=== PATIENT | female | born 1950 | race Caucasian/White ===

== ENCOUNTER → 2016-12-05 | Outpatient (CLI) | payer MEDICARE, OTHER ==
[2016-12-05 15:34] LABS: Basophils # (A) 0.1 k/uL (0-0.2); Basophils % (A) 1 %; CH 31.2; CHCM 31.7; Eosinophils # (A) 0.1 k/uL (0-0.7); Eosinophils % (A) 2 %; HCT 38.6 % (34.0-46.0); HDW 2.19; HGB 12.4 gm/dL (11.4-16.0); Luc # (Auto) 0.15; Luc % (Auto) 2; Lymphocytes # (A) 1.5 k/uL (1.0-4.8); Lymphocytes % (A) 18 %; MCH 31.9 pg (25.0-35.0); MCHC 32.2 g/dL (31.0-37.0); MCV 99.2 fL (80.0-100.0); Mean Platelet Volume 7.5; Monocytes # (A) 0.5 k/uL (0-1.0); Monocytes % (A) 6 %; Neutrophils # (A) 6.1 k/uL (1.3-7.7); Neutrophils % (A) 72 %; RBC 3.89 m/uL (3.80-5.40); RDW 13.8 % (11.5-15.5); WBC 8.4 k/uL (3.8-10.6); WBC (Perox) 8.26
[2016-12-05 15:45] LABS: ALT 24 U/L (9-52); AST 12 U/L (14-36); Alkaline Phosphatase 53 U/L (38-126); Anion Gap 8 mmol/L; Blood Urea Nitrogen 16 mg/dL (7-17); Calcium 9.4 mg/dL (8.4-10.2); Carbon Dioxide 34 mmol/L (22-30); Chloride 93 mmol/L (98-107); Glucose 104 mg/dL (74-99); Non-African American GFR(MDRD) >60 (>60 ml/min/1.73 sqM); Potassium 3.8 mmol/L (3.5-5.1); Sodium 135 mmol/L (137-145); Total Bilirubin 0.3 mg/dL (0.2-1.3); Total Protein 6.4 g/dL (6.3-8.2)
[2016-12-05 16:33] LABS: Vitamin B12 846 pg/mL (239-931)
[2016-12-08 05:43] LABS: Vitamin E (Alpha Tocopherol) 1062 ug/dL (500-1800)
== END ==
LOC: LABWHC1 15:15
PROVIDERS: ATTEND Psychiatry & Neurology Pain Medicine
DX: G32.81 Cerebellar ataxia in diseases classified elsewhere (principal)
CPT/HCPCS: 36415; 80053; 82607; 83519; 84439; 84443; 84446; 84481; 85025

== ENCOUNTER → 2016-12-07 | Outpatient (CLI) | payer MEDICARE, OTHER ==
--- NOTE | 2016-12-07 16:25 | MR ---
EXAMINATION TYPE: MR brain/lspine wo con DATE OF EXAM: 12/07/2016 3:58 PM COMPARISON: MRI brain 01/05/2013 HISTORY: 66-year-old female cerebellar ataxia and low back pain. TECHNIQUE: Multiplanar, multisequence images of the brain and brainstem were acquired without IV con trast. Diffusion weighted imaging is performed. Subsequent multiplanar, multisequence imaging of the lumbar spine. FINDINGS: BRAIN: No evidence for acute infarction, hemorrhage, mass, mass effect, midline shift, herniation, effacemen t of basal cisterns, or extra-axial fluid collection. Mild generalized supratentorial volume loss. No hydrocephalus. Major intracranial flow voids are intact. T2/FLAIR weighted sequences show stable 17 mm low signal focus in the left bo radiata. No signifi cant white matter signal changes. Midline structures demonstrate normal morphology. The craniocervical junction is normal. Mild mucosal thickening ethmoid air cells. Partial opacification of the right greater than left masto id air cells. LUMBAR SPINE: There is a degenerated dextroconvex scoliosis. There is some edematous Modic type I endplate change t owards the left at L4-L5 related to moderate to advanced disc/end plate degenerative change. The intervertebral discs are degenerated, desiccated, and diffusely bulging with moderate disc height loss at L4-L5 and mild at additional levels. Alignment is maintained. Vertebral body heights are preserved. Diffuse heterogeneity of marrow signal without suspicious bone marrow replacement. Conus medullaris is normal. At T11/T12, there is focal posterior disc protrusion which impresses onto the ventral thecal sac but does not cause significant spinal canal or neuroforaminal stenosis. At T12-L1, no spinal canal or foraminal stenosis. At L1-L2, no spinal canal or foraminal stenosis. L2-L3, mild diffuse disc bulge and facet degenerative change. There is mild ventral impression on the thecal sac without significant spinal canal or neuroforaminal stenosis. At L3-L4, diffuse disc bulge with ligamentum flavum thickening and mild facet arthropathy. There is i mpression onto the thecal sac without significant spinal canal stenosis. Mild left neural foraminal s tenosis is noted with a small left intraforaminal annular fissure. At L4-L5, diffuse disc bulge with ligamentum flavum thickening and hypertrophic facet arthropathy. Th ere is circumferential attenuation of the thecal sac without significant spinal canal stenosis. There is mild left neural foraminal stenosis. Disc material may abut the traversing left L5 nerve root. At L5-S1, diffuse disc bulge with facet arthropathy. No significant spinal canal stenosis. Changes re sult in mild right neuroforaminal stenosis. A right lateral component to the disc bulge may abut the extraforaminal right L5 nerve root. No prevertebral or paravertebral soft tissue abnormality seen. Upper abdominal aorta is ectatic at 2.6 cm. COMBINED IMPRESSION: BRAIN: 1. Stable mild generalized atrophy without acute intracranial abnormality seen. 2. Also stable 7 to 8 mm low signal focus in the left bo radiata suggesting hemosiderin depositio n, possible underlying cavernoma. 3. Some retained secretions within the right greater than left mastoid air cells. Correlate for any m astoid pain to exclude mastoiditis. LUMBAR SPINE: 1. Moderate multilevel degenerative disc disease. Changes are moderate to severe towards the left at L4-L5 with edematous Modic type I endplate change relating to a dextroconvex scoliosis. 2. Additional ligamentum flavum thickening and facet arthropathy particularly in the mid to lower lum bar spine. 3. There is narrowing of the thecal sac at multiple levels particularly L3-L4 and L4-L5 but without s ignificant spinal canal stenosis. 4. At L3-L4, there is mild left neuroforaminal stenosis with a small intraforaminal annular fissure. 5. At L4-L5, there is mild left neuroforaminal stenosis. Disc material may abut the traversing left L 5 nerve root here. 6. At L5-S1, there is mild right neuroforaminal stenosis. A right lateral component to the disc bulge at this level may abut the extraforaminal right L5 nerve root.
== END | disposition home or self-care (01) ==
LOC: RADMRIMAIN 14:56
PROVIDERS: ATTEND Psychiatry & Neurology Pain Medicine
DX: M99.73 Connective tissue and disc stenosis of intervertebral foramina of lumbar region (principal); M51.26 Other intervertebral disc displacement, lumbar region; M46.96 Unspecified inflammatory spondylopathy, lumbar region; M41.9 Scoliosis, unspecified; G31.9 Degenerative disease of nervous system, unspecified
CPT/HCPCS: 70551; 72148

== ENCOUNTER → 2017-03-08 | Outpatient (CLI) | payer MEDICARE, OTHER ==
--- NOTE | 2017-03-09 09:05 | MM ---
Reason for exam: screening (asymptomatic). Last mammogram was performed 14 years and 2 months ago. History: Patient is postmenopausal. Family history of breast cancer in mother and breast cancer in 2 sisters. 2 benign excisional biopsies of the left breast. Physical Findings: A clinical breast exam by your physician is recommended on an annual basis and results should be correlated with mammographic findings. MG Screening Mammo w CAD Bilateral CC, MLO, and XCCL view(s) were taken. No prior studies available for comparison. The breast tissue is extremely dense which could obscure a lesion on mammography. There is no discrete abnormality. ASSESSMENT: Negative, BI-RAD 1 RECOMMENDATION: Routine screening mammogram of both breasts in 1 year.
== END | disposition home or self-care (01) ==
LOC: RADMAMWWP 15:02
PROVIDERS: ATTEND Family Medicine
DX: Z12.31 Encounter for screening mammogram for malignant neoplasm of breast (principal)

== ENCOUNTER 2019-01-24 15:56 | Inpatient (IN) | payer MEDICARE, OTHER ==
[2019-01-24] MEDS ORDERED: HYDROcodone/APAP 5-325MG 1 EACH TAB PO STA (16:46)
[2019-01-24] MEDS ORDERED: methylPREDNISolone SOD SUCCI 125 MG/2 ML VIAL IV STA (16:49)
[2019-01-24] MEDS ORDERED: IPRATROPIUM-ALBUTEROL 3 ML NEB INHALATION STA (16:49)
--- NOTE | 2019-01-24 16:53 | ED ---
General Adult HPI - General Chief complaint: Weakness Stated complaint: Weakness Time Seen by Provider: 01/24/19 16:16 Source: patient, RN notes reviewed, old records reviewed (ER report and head CT from [facility] 01/20/[address] shows no acute process. Compared with 01/08/2019.) Mode of arrival: wheelchair Limitations: no limitations - History of Present Illness Initial comments: Patient is a pleasant 68-year-old female presenting to the emergency Department with weakness. Symptoms have progressed with the past week. Patient is a poor historian secondary to history of memory problems. Ex- is present and provides majority of history. Patient was in a different facility a couple of weeks ago for syncopal episodes. Patient has progressively become more weak over that time. Patient did see her primary care physician today and had a near-syncopal episode. Patient was advised come to emergency department and advised that she would probably need placement. Patient is wheelchair-bound however is able to transfer. Patient does have cough and difficulty in breathing. Patient states this is somewhat worse than normal however ex- states this is chronic. No leg pain or leg swelling. No chest pain. Patient does not feel confused. - Related Data Home Medications Medication Instructions Recorded Confirmed Divalproex ER [Depakote ER] 500 mg PO DAILY 11/09/15 01/24/19 FLUoxetine HCL [PROzac] 40 mg PO DAILY 11/09/15 01/24/19 Atorvastatin [Lipitor] 10 mg PO DAILY 09/16/17 01/24/19 fentaNYL 75MCG/HR PATCH [Duragesic 1 patch TRANSDERM Q72H 09/16/17 01/24/19 75MCG/HR] Aspirin [Adult Low Dose Aspirin EC] 81 mg PO DAILY PRN 01/24/19 01/24/19 Gabapentin [Neurontin] 600 mg PO TID 01/24/19 01/24/19 Levothyroxine Sodium [Synthroid] 25 mcg PO DAILY 01/24/19 01/24/19 OLANZapine [ZyPREXA] 10 mg PO BID 01/24/19 01/24/19 Oxybutynin Chloride [Ditropan XL] 10 mg PO HS 01/24/19 01/24/19 Primidone [Mysoline] 50 mg PO QID 01/24/19 01/24/19 Propranolol HCl 10 mg PO QID 01/24/19 01/24/19 oxyCODONE HCL [oxyCODONE HCL (IR)] 30 mg PO QID 01/24/19 01/24/19 Allergies Allergy/AdvReac Type Severity Reaction Status Date / Time Iodinated Contrast- Oral and Allergy Unknown Verified 01/24/19 17:52 IV Dye [Iodinated Contrast Media - IV Dye] codeine AdvReac Nausea & Verified 01/24/19 17:52 Vomiting morphine AdvReac Nausea & Verified 01/24/19 17:52 Vomiting Review of Systems ROS Statement: Those systems with pertinent positive or pertinent negative responses have been documented in the HPI. ROS Other: All systems not noted in ROS Statement are negative. Constitutional: Denies: fever Eyes: Denies: eye pain ENT: Denies: ear pain Respiratory: Reports: cough, dyspnea Cardiovascular: Denies: chest pain Endocrine: Reports: fatigue Gastrointestinal: Denies: abdominal pain Genitourinary: Denies: urgency, dysuria Musculoskeletal: Denies: back pain Skin: Denies: rash Past Medical History Past Medical History: Cancer, COPD, CVA/TIA, Deep Vein Thrombosis (DVT), Hyperlipidemia, Osteoarthritis (OA), Rheumatoid Arthritis (RA), Thyroid Disorder Additional Past Medical History / Comment(s): hepatitis c, shingles,RSD, thyroid cancer and a couple lymph nodes(1995), fibrocystic breast disease, ovarian cyst, 4 TIA, cardiac arrest in 1971 during a hip sx, congenital hip disease/dislocation;TB(1997); 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 Past Anesthesia/Blood Transfusion Reactions: No Reported Reaction Additional Past Anesthesia/Blood Transfusion Reaction / Comment(s): blood transfusion 1977 -contracted hep c- per daughter it layed domant till 1999. Past Psychological History: Anxiety, Depression Smoking Status: Current every day smoker Past Alcohol Use History: None Reported Past Drug Use History: Marijuana - Past Family History Mother Family Medical History: No Reported History Father Additional Family Medical History / Comment(s): TB Sister(s) Family Medical History: Cancer Additional Family Medical History / Comment(s): LUNG CANCER General Exam Limitations: no limitations General appearance: alert, in no apparent distress Head exam: Present: atraumatic Eye exam: Present: normal appearance, PERRL ENT exam: Present: normal oropharynx Neck exam: Present: normal inspection Respiratory exam: Present: wheezes, rales. Absent: respiratory distress Cardiovascular Exam: Present: regular rate, normal rhythm GI/Abdominal exam: Present: soft. Absent: tenderness Extremities exam: Present: normal inspection Neurological exam: Present: alert Expanded Patient oriented to: Present: person, place. Absent: time Motor strength exam: RUE: 5, LUE: 5, RLE: 5, LLE: 5 Eye Response: (4) open spontaneously Motor Response: (6) obeys commands Verbal Response: (4) confused conversation Psychiatric exam: Present: normal affect, normal mood Skin exam: Present: normal color. Absent: rash Course Vital Signs 01/24/19 01/24/19 01/24/19 16:02 17:22 17:35 Temperature 99.0 F Pulse Rate 75 70 Respiratory 18 18 Rate Blood Pressure 158/97 O2 Sat by Pulse 94 L Oximetry 01/24/19 01/24/19 17:46 18:49 Temperature Pulse Rate 72 70 Respiratory 20 Rate Blood Pressure 160/100 O2 Sat by Pulse Oximetry EKG Findings - EKG Comments: EKG Findings:: Normal sinus rhythm 73. ND 122. QRS 88. QT 372. QTC 49. Normal axis. Normal QRS. No acute ST change. Procedures - ABG Interpretation Ph: 7.43 PCO2: 57.1 PO2: 76.6 Interpretation: respiratory acidosis, metabolic alkalosis, other (Compensated) Medical Decision Making - Medical Decision Making Case was discussed with Dr. Thurston, covering for Dr. Colon, who will admit. Patient and family are updated. Patient will be placed on BiPAP for one to 2 hour period improved CO2 - Lab Data Result diagrams: 01/24/19 16:29 01/24/19 16:29 Lab Results 01/24/19 01/24/19 01/24/19 Range/Units 16:29 16:29 16:29 WBC 9.6 (3.8-10.6) k/uL RBC 4.02 (3.80-5.40) m/uL Hgb 13.0 (11.4-16.0) gm/dL Hct 39.3 (34.0-46.0) % MCV 97.6 (80.0-100.0) fL MCH 32.3 (25.0-35.0) pg MCHC 33.1 (31.0-37.0) g/dL RDW 14.5 (11.5-15.5) % Plt Count 320 (150-450) k/uL Neutrophils % 79 % Lymphocytes % 10 % Monocytes % 6 % Eosinophils % 1 % Basophils % 1 % Neutrophils # 7.6 (1.3-7.7) k/uL Lymphocytes # 1.0 (1.0-4.8) k/uL Monocytes # 0.6 (0-1.0) k/uL Eosinophils # 0.1 (0-0.7) k/uL Basophils # 0.1 (0-0.2) k/uL PT 9.3 (9.0-12.0) sec INR 0.8 (<1.2) APTT 25.2 (22.0-30.0) sec Sample Site ABG pH (7.35-7.45) ABG pCO2 (35-45) mmHg ABG pO2 (83-108) mmHg ABG HCO3 (21-25) mmol/L ABG Total CO2 (19-24) mmol/L ABG O2 Saturation (94-97) % ABG Base Excess mmol/L Efren Test FiO2 % Sodium 128 L (137-145) mmol/L Potassium 4.1 (3.5-5.1) mmol/L Chloride 86 L (98-107) mmol/L Carbon Dioxide 36 H (22-30) mmol/L Anion Gap 6 mmol/L BUN 16 (7-17) mg/dL Creatinine 0.74 (0.52-1.04) mg/dL Est GFR (CKD-EPI)AfAm >90 (>60 ml/min/1.73 sqM) Est GFR (CKD-EPI)NonAf 85 (>60 ml/min/1.73 sqM) Glucose 99 (74-99) mg/dL Calcium 9.1 (8.4-10.2) mg/dL Phosphorus 3.6 (2.5-4.5) mg/dL Magnesium 1.7 (1.6-2.3) mg/dL Total Bilirubin 0.3 (0.2-1.3) mg/dL AST 52 H (14-36) U/L ALT 63 H (9-52) U/L Alkaline Phosphatase 86 (38-126) U/L Creatine Kinase 44 (30-135) U/L Troponin I (0.000-0.034) ng/mL Total Protein 6.2 L (6.3-8.2) g/dL Albumin 3.5 (3.5-5.0) g/dL TSH 40.200 H (0.465-4.680) mIU/L Free T4 1.03 (0.78-2.19) ng/dL Free T3 pg/mL 1.8 L (2.8-5.3) pg/ml Urine Color Urine Appearance (Clear) Urine pH (5.0-8.0) Ur Specific Vanderbilt (1.001-1.035) Urine Protein (Negative) Urine Glucose (UA) (Negative) Urine Ketones (Negative) Urine Blood (Negative) Urine Nitrite (Negative) Urine Bilirubin (Negative) Urine Urobilinogen (<2.0) mg/dL Ur Leukocyte Esterase (Negative) Valproic Acid ug/mL 01/24/19 01/24/19 01/24/19 Range/Units 16:29 16:29 17:00 WBC (3.8-10.6) k/uL RBC (3.80-5.40) m/uL Hgb (11.4-16.0) gm/dL Hct (34.0-46.0) % MCV (80.0-100.0) fL MCH (25.0-35.0) pg MCHC (31.0-37.0) g/dL RDW (11.5-15.5) % Plt Count (150-450) k/uL Neutrophils % % Lymphocytes % % Monocytes % % Eosinophils % % Basophils % % Neutrophils # (1.3-7.7) k/uL Lymphocytes # (1.0-4.8) k/uL Monocytes # (0-1.0) k/uL Eosinophils # (0-0.7) k/uL Basophils # (0-0.2) k/uL PT (9.0-12.0) sec INR (<1.2) APTT (22.0-30.0) sec Sample Site ABG pH (7.35-7.45) ABG pCO2 (35-45) mmHg ABG pO2 (83-108) mmHg ABG HCO3 (21-25) mmol/L ABG Total CO2 (19-24) mmol/L ABG O2 Saturation (94-97) % ABG Base Excess mmol/L Efren Test FiO2 % Sodium (137-145) mmol/L Potassium (3.5-5.1) mmol/L Chloride (98-107) mmol/L Carbon Dioxide (22-30) mmol/L Anion Gap mmol/L BUN (7-17) mg/dL Creatinine (0.52-1.04) mg/dL Est GFR (CKD-EPI)AfAm (>60 ml/min/1.73 sqM) Est GFR (CKD-EPI)NonAf (>60 ml/min/1.73 sqM) Glucose (74-99) mg/dL Calcium (8.4-10.2) mg/dL Phosphorus (2.5-4.5) mg/dL Magnesium (1.6-2.3) mg/dL Total Bilirubin (0.2-1.3) mg/dL AST (14-36) U/L ALT (9-52) U/L Alkaline Phosphatase (38-126) U/L Creatine Kinase (30-135) U/L Troponin I <0.012 (0.000-0.034) ng/mL Total Protein (6.3-8.2) g/dL Albumin (3.5-5.0) g/dL TSH (0.465-4.680) mIU/L Free T4 (0.78-2.19) ng/dL Free T3 pg/mL (2.8-5.3) pg/ml Urine Color Light Yellow Urine Appearance Clear (Clear) Urine pH 7.0 (5.0-8.0) Ur Specific Vanderbilt 1.010 (1.001-1.035) Urine Protein Negative (Negative) Urine Glucose (UA) Negative (Negative) Urine Ketones Negative (Negative) Urine Blood Negative (Negative) Urine Nitrite Negative (Negative) Urine Bilirubin Negative (Negative) Urine Urobilinogen <2.0 (<2.0) mg/dL Ur Leukocyte Esterase Negative (Negative) Valproic Acid 25.0 ug/mL 01/24/19 Range/Units 17:21 WBC (3.8-10.6) k/uL RBC (3.80-5.40) m/uL Hgb (11.4-16.0) gm/dL Hct (34.0-46.0) % MCV (80.0-100.0) fL MCH (25.0-35.0) pg MCHC (31.0-37.0) g/dL RDW (11.5-15.5) % Plt Count (150-450) k/uL Neutrophils % % Lymphocytes % % Monocytes % % Eosinophils % % Basophils % % Neutrophils # (1.3-7.7) k/uL Lymphocytes # (1.0-4.8) k/uL Monocytes # (0-1.0) k/uL Eosinophils # (0-0.7) k/uL Basophils # (0-0.2) k/uL PT (9.0-12.0) sec INR (<1.2) APTT (22.0-30.0) sec Sample Site rbrach ABG pH 7.43 (7.35-7.45) ABG pCO2 57 H (35-45) mmHg ABG pO2 77 L (83-108) mmHg ABG HCO3 38 H (21-25) mmol/L ABG Total CO2 40 H (19-24) mmol/L ABG O2 Saturation 95.9 (94-97) % ABG Base Excess 13.9 mmol/L Efren Test Yes FiO2 28 % Sodium (137-145) mmol/L Potassium (3.5-5.1) mmol/L Chloride (98-107) mmol/L Carbon Dioxide (22-30) mmol/L Anion Gap mmol/L BUN (7-17) mg/dL Creatinine (0.52-1.04) mg/dL Est GFR (CKD-EPI)AfAm (>60 ml/min/1.73 sqM) Est GFR (CKD-EPI)NonAf (>60 ml/min/1.73 sqM) Glucose (74-99) mg/dL Calcium (8.4-10.2) mg/dL Phosphorus (2.5-4.5) mg/dL Magnesium (1.6-2.3) mg/dL Total Bilirubin (0.2-1.3) mg/dL AST (14-36) U/L ALT (9-52) U/L Alkaline Phosphatase (38-126) U/L Creatine Kinase (30-135) U/L Troponin I (0.000-0.034) ng/mL Total Protein (6.3-8.2) g/dL Albumin (3.5-5.0) g/dL TSH (0.465-4.680) mIU/L Free T4 (0.78-2.19) ng/dL Free T3 pg/mL (2.8-5.3) pg/ml Urine Color Urine Appearance (Clear) Urine pH (5.0-8.0) Ur Specific Vanderbilt (1.001-1.035) Urine Protein (Negative) Urine Glucose (UA) (Negative) Urine Ketones (Negative) Urine Blood (Negative) Urine Nitrite (Negative) Urine Bilirubin (Negative) Urine Urobilinogen (<2.0) mg/dL Ur Leukocyte Esterase (Negative) Valproic Acid ug/mL - Radiology Data Radiology results: image reviewed (Chest x-ray shows no acute process) Critical Care Time Critical Care Time: Yes Total Critical Care Time: 34 Disposition Clinical Impression: Acute exacerbation of chronic obstructive pulmonary disease (COPD), Near syncope, Hyponatremia Disposition: ADMITTED IP TO THIS HOSP Is patient prescribed a controlled substance at d/c from ED?: No Decision Time: 17:31
[2019-01-24 17:24] LABS: ABG Base Excess 13.9 mmol/L; ABG HCO3 38 mmol/L (21-25); ABG Oxygen Saturation 95.9 % (94-97); ABG PCO2 57 mmHg (35-45); ABG PH 7.43 (7.35-7.45); ABG PO2 77 mmHg (83-108); ABG TCO2 40 mmol/L (19-24); Allen Test Performed? Yes
[2019-01-24 17:25] LABS: Basophils # (A) 0.1 k/uL (0-0.2); Basophils % (A) 1 %; Eosinophils # (A) 0.1 k/uL (0-0.7); Eosinophils % (A) 1 %; HCT 39.3 % (34.0-46.0); Lymphocytes % (A) 10 %; MCH 32.3 pg (25.0-35.0); MCHC 33.1 g/dL (31.0-37.0); MCV 97.6 fL (80.0-100.0); Mean Platelet Volume 7.1; Monocytes # (A) 0.6 k/uL (0-1.0); Monocytes % (A) 6 %; Neutrophils # (A) 7.6 k/uL (1.3-7.7); Neutrophils % (A) 79 %; Platelet Count 320 k/uL (150-450); RBC 4.02 m/uL (3.80-5.40); RDW 14.5 % (11.5-15.5); WBC 9.6 k/uL (3.8-10.6)
[2019-01-24] MEDS ORDERED: IPRATROPIUM-ALBUTEROL 3 ML NEB INHALATION PRN (17:31)
[2019-01-24 17:36] LABS: ALT 63 U/L (9-52); AST 52 U/L (14-36); African American GFR (CKD) >90 (>60 ml/min/1.73 sqM); Albumin 3.5 g/dL (3.5-5.0); Alkaline Phosphatase 86 U/L (38-126); Anion Gap 6 mmol/L; Blood Urea Nitrogen 16 mg/dL (7-17); Calcium 9.1 mg/dL (8.4-10.2); Carbon Dioxide 36 mmol/L (22-30); Chloride 86 mmol/L (98-107); Creatine Kinase 44 U/L (30-135); Glucose 99 mg/dL (74-99); Magnesium 1.7 mg/dL (1.6-2.3); Phosphorus 3.6 mg/dL (2.5-4.5); Potassium 4.1 mmol/L (3.5-5.1); Sodium 128 mmol/L (137-145); Total Bilirubin 0.3 mg/dL (0.2-1.3); Total Protein 6.2 g/dL (6.3-8.2)
[2019-01-24 17:42] LABS: INR 0.8 (<1.2); Partial Thromboplastin Time 25.2 sec (22.0-30.0); Prothrombin Time 9.3 sec (9.0-12.0)
[2019-01-24 17:43] LABS: Appearance,Urine Clear (Clear); Bilirubin,Urine Negative (Negative); Blood,Urine Negative (Negative); Color,Urine Light Yellow; Glucose,Urine (UA) Negative (Negative); Ketones,Urine Negative (Negative); Leukocyte Esterase,Urine Negative (Negative); Nitrite,Urine Negative (Negative); Protein,Urine Negative (Negative); Urobilinogen,Urine <2.0 mg/dL (<2.0)
[2019-01-24 17:52] LABS: T4, Free (Free Thyroxine) 1.03 ng/dL (0.78-2.19)
--- NOTE | 2019-01-24 18:09 | XR ---
EXAMINATION TYPE: XR chest 2V DATE OF EXAM: 01/24/2019 COMPARISON: September 24, 2017 HISTORY: Weakness TECHNIQUE: Frontal and lateral views of the chest are obtained. FINDINGS: There is no heart failure nor confluent pneumonic infiltrate. Costophrenic angles are luann r. There are chest leads. Bony thorax is intact and there is osteopenia. IMPRESSION: No active cardiopulmonary disease. No change.
[2019-01-24] MEDS: methylPREDNISolone SOD SUCCI 125 MG/2 ML VIAL IV SCH ×2 (18:53→23:27)
[2019-01-24] MEDS: SODIUM CHLORIDE 0.9% 1,000 ML IV SCH (18:53)
[2019-01-24] MEDS ORDERED: amLODIPine 5 MG TAB PO STA (19:44)
[2019-01-24] MEDS ORDERED: ASPIRIN 81 MG PO PRN (20:15)
[2019-01-24] MEDS: IPRATROPIUM-ALBUTEROL 3 ML NEB INHALATION SCH (20:54)
[2019-01-24] MEDS ORDERED: GABAPENTIN 300 MG CAP PO SCH (21:00)
[2019-01-24] MEDS ORDERED: OLANZapine 5 MG TAB PO SCH (21:00)
[2019-01-24] MEDS: IMIPRAMINE 25 MG TAB PO SCH (21:55)
[2019-01-24] MEDS: GABAPENTIN 300 MG CAP PO SCH (21:56)
[2019-01-24] MEDS: PRIMIDONE 50 MG TAB PO SCH (21:56)
[2019-01-24] MEDS: PROPRANOLOL 10 MG TAB PO SCH (22:05)
[2019-01-24] MEDS: OXYBUTYNIN 10 MG TAB.ER.24 PO SCH (22:05)
[2019-01-24] MEDS: OLANZapine 10 MG TAB PO SCH (22:05)
[2019-01-25] MEDS: methylPREDNISolone SOD SUCCI 125 MG/2 ML VIAL IV SCH (05:43)
[2019-01-25] MEDS: LEVOTHYROXINE 25 MCG TAB PO SCH (05:43)
[2019-01-25] MEDS: IPRATROPIUM-ALBUTEROL 3 ML NEB INHALATION SCH ×5 (08:02→23:45)
[2019-01-25] MEDS: SYMBICORT 160-4.5 MCG INHALER INHALATION SCH ×2 (08:02→22:02)
[2019-01-25] MEDS: FLUoxetine HCL 20 MG CAP PO SCH (08:27)
[2019-01-25] MEDS: GABAPENTIN 300 MG CAP PO SCH ×3 (08:27→19:45)
[2019-01-25] MEDS: ATORVASTATIN 10 MG TAB PO SCH (08:27)
[2019-01-25] MEDS: methylPREDNISolone 4 MG TAB TAPER PO SCH (08:28)
[2019-01-25] MEDS: OLANZapine 10 MG TAB PO SCH ×2 (08:30→21:17)
[2019-01-25] MEDS: PRIMIDONE 50 MG TAB PO SCH ×3 (08:30→21:17)
[2019-01-25] MEDS: PROPRANOLOL 10 MG TAB PO SCH ×4 (08:31→21:17)
--- NOTE | 2019-01-25 09:12 | P.CRDCN ---
History of Present Illness Consult date: 01/25/19 History of present illness: This is a 68-year-old female patient who is somewhat poor historian and we consulted to see the patient because of presyncope. The patient does have history of smoking and known chronic obstructive pulmonary disease and hypoxic respiratory failure and she is requiring oxygen 24 and she is on 2 L at home, but beside that there is no history of coronary artery disease, diabetes, hypertension, and dyslipidemia. She lives with her ex- at home. The patient is stated that she has been feeling weak and tired. Beside that she has been experiencing symptoms of cough productive of sputum. Denies any fever or chills. Denies any chest pain or chest discomfort. She stated that she has been more short of breath lately. Beside that she has been progressively weak area she denies any loss of consciousness or syncope. But she stated that she has been feeling dizzy. The patient was brought to the emergency room by her ex-. She stated that the main reason she was brought here is for possible replacement. The patient is not aware of any prior history of coronary artery disease or congestive heart failure or any cardiac arrhythmia and she never seen by a deaf interpreter in the past. The chest x-ray did not show any acut e abnormalities. The EKG showed sinus rhythm without any ischemic ST or T-wave abnormalities. The hemoglobin is within normal limits. The sodium was low. The first set of troponin came in to be unremarkable. 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 Past Anesthesia/Blood Transfusion Reactions: No Reported Reaction Additional Past Anesthesia/Blood Transfusion Reaction / Comment(s): blood transfusion 1977 -contracted hep c- per daughter it layed domant till 1999. Past Psychological History: Anxiety, Depression Smoking Status: Current every day smoker Past Alcohol Use History: None Reported Past Drug Use History: Marijuana - Past Family History Mother Family Medical History: No Reported History Father Additional Family Medical History / Comment(s): TB Sister(s) Family Medical History: Cancer Additional Family Medical History / Comment(s): LUNG CANCER Medications and Allergies Home Medications Medication Instructions Recorded Confirmed Type Divalproex ER [Depakote ER] 500 mg PO DAILY 11/09/15 01/24/19 History FLUoxetine HCL [PROzac] 40 mg PO DAILY 11/09/15 01/24/19 History Atorvastatin [Lipitor] 10 mg PO DAILY 09/16/17 01/24/19 History fentaNYL 75MCG/HR PATCH [Duragesic 1 patch TRANSDERM Q72H 09/16/17 01/24/19 History 75MCG/HR] Aspirin [Adult Low Dose Aspirin EC] 81 mg PO DAILY PRN 01/24/19 01/24/19 History Gabapentin [Neurontin] 600 mg PO TID 01/24/19 01/24/19 History Levothyroxine Sodium [Synthroid] 25 mcg PO DAILY 01/24/19 01/24/19 History OLANZapine [ZyPREXA] 10 mg PO BID 01/24/19 01/24/19 History Oxybutynin Chloride [Ditropan XL] 10 mg PO HS 01/24/19 01/24/19 History Primidone [Mysoline] 50 mg PO QID 01/24/19 01/24/19 History Propranolol HCl 10 mg PO QID 01/24/19 01/24/19 History oxyCODONE HCL [oxyCODONE HCL (IR)] 30 mg PO QID 01/24/19 01/24/19 History Allergies Allergy/AdvReac Type Severity Reaction Status Date / Time Iodinated Contrast- Oral and Allergy Unknown Verified 01/24/19 17:52 IV Dye [Iodinated Contrast Media - IV Dye] codeine AdvReac Nausea & Verified 01/24/19 17:52 Vomiting morphine AdvReac Nausea & Verified 01/24/19 17:52 Vomiting Physical Exam Vitals: Vital Signs Temp Pulse Pulse Resp BP BP Pulse Ox 01/25/19 08:17 84 01/25/19 08:06 80 98 01/25/19 04:32 97.5 F L 66 18 131/75 98 01/24/19 21:05 77 16 01/24/19 20:55 75 16 95 01/24/19 20:15 97.5 F L 66 18 175/84 98 01/24/19 19:39 97.9 F 72 16 154/96 96 01/24/19 18:49 70 20 160/100 01/24/19 17:46 72 01/24/19 17:35 70 01/24/19 17:22 74 16 96 01/24/19 16:18 97.9 F 72 16 153/108 96 01/24/19 16:02 99.0 F 75 18 158/97 94 L Intake and Output 01/24/19 01/25/19 01/25/19 22:59 06:59 14:59 Intake Total 590 1140 Balance 590 1140 Intake: Intake, IV Titration 900 Amount Sodium Chloride 0.9% 1, 900 000 ml @ 75 mls/hr IV . [id number] [facility] Rx#:[id number] Oral 590 240 Other: Voiding Method Bedside Commode # Voids 1 2 # Bowel Movements 1 Weight 44.906 kg - Constitutional General appearance: no acute distress - Respiratory Respiratory: bilateral: wheezing - Cardiovascular Rhythm: regular Heart sounds: normal: S1, S2 Results 01/24/19 16:29 01/24/19 16:29 Cardiac Enzymes 01/24/19 01/24/19 Range/Units 16:29 16:29 AST 52 H (14-36) U/L Troponin I <0.012 (0.000-0.034) ng/mL Coagulation 01/24/19 Range/Units 16:29 PT 9.3 (9.0-12.0) sec APTT 25.2 (22.0-30.0) sec CBC 01/24/19 Range/Units 16:29 WBC 9.6 (3.8-10.6) k/uL RBC 4.02 (3.80-5.40) m/uL Hgb 13.0 (11.4-16.0) gm/dL Hct 39.3 (34.0-46.0) % Plt Count 320 (150-450) k/uL Comprehensive Metabolic Panel 01/24/19 Range/Units 16:29 Sodium 128 L (137-145) mmol/L Potassium 4.1 (3.5-5.1) mmol/L Chloride 86 L (98-107) mmol/L Carbon Dioxide 36 H (22-30) mmol/L BUN 16 (7-17) mg/dL Creatinine 0.74 (0.52-1.04) mg/dL Glucose 99 (74-99) mg/dL Calcium 9.1 (8.4-10.2) mg/dL AST 52 H (14-36) U/L ALT 63 H (9-52) U/L Alkaline Phosphatase 86 (38-126) U/L Total Protein 6.2 L (6.3-8.2) g/dL Albumin 3.5 (3.5-5.0) g/dL Current Medications Generic Name Dose Route Start Last Admin Trade Name Freq PRN Reason Stop Dose Admin Albuterol/Ipratropium 3 ml 01/24/19 21:00 01/25/19 08:02 Duoneb 0.5 Mg-3 Mg/3 Ml Soln INHALATION 3 ml RT-QID JOSUE Administration Albuterol/Ipratropium 3 ml 01/24/19 17:31 Duoneb 0.5 Mg-3 Mg/3 Ml Soln INHALATION RT-Q4H PRN Shortness Of Breath Or Wheezing Aspirin 81 mg 01/24/19 20:15 Aspirin PO DAILY PRN Pain Atorvastatin Calcium 10 mg 01/25/19 09:00 01/25/19 08:27 Lipitor PO 10 mg DAILY JOSUE Administration Budesonide/Formoterol Fumarate 2 puff 01/25/19 08:00 01/25/19 08:02 Symbicort 160-4.5 Mcg Inhaler INHALATION 2 puff RT-BID JOSUE Administration Divalproex Sodium 500 mg 01/25/19 09:00 Depakote Er PO DAILY JOSUE Fluoxetine HCl 40 mg 01/25/19 09:00 01/25/19 08:27 Prozac PO 40 mg DAILY JOSUE Administration Gabapentin 600 mg 01/24/19 22:00 01/25/19 08:27 Neurontin PO 600 mg TID JOSUE Administration Sodium Chloride 1,000 mls @ 75 mls/hr 01/24/19 17:45 01/24/19 18:53 Saline 0.9% IV 75 mls/hr .[id number] JOSUE Administration Imipramine HCl 25 mg 01/24/19 21:00 01/24/19 21:55 Tofranil PO 25 mg HS JOSUE Administration Levothyroxine Sodium 25 mcg 01/25/19 06:30 01/25/19 05:43 Synthroid PO 25 mcg DAILY@0630 JOSUE Administration Methylprednisolone 24 mg 01/25/19 09:00 01/25/19 08:28 Medrol Dose Pack PO 01/31/19 08:59 20 mg DAILY JOSUE Administration Taper Nitroglycerin 2.5 mg 01/25/19 09:00 Nitro-Bid PO DAILY JOSUE Olanzapine 10 mg 01/24/19 21:00 01/25/19 08:30 Zyprexa PO 10 mg BID JOSUE Administration Oxybutynin Chloride 10 mg 01/24/19 21:00 01/24/19 22:05 Ditropan Xl PO 10 mg HS JOSUE Administration Oxycodone HCl 30 mg 01/24/19 22:00 01/25/19 08:27 Oxyir PO 30 mg QID JOSUE Administration Primidone 50 mg 01/24/19 22:00 01/25/19 08:30 Mysoline PO 50 mg TID JOSUE Administration Propranolol HCl 10 mg 01/24/19 22:00 01/25/19 08:31 Inderal PO 10 mg QID JOSUE Administration Intake and Output 01/24/19 01/25/19 01/25/19 22:59 06:59 14:59 Intake Total 590 1140 Balance 590 1140 Intake: Intake, IV Titration 900 Amount Sodium Chloride 0.9% 1, 900 000 ml @ 75 mls/hr IV . [id number] JOSUE Rx#:[id number] Oral 590 240 Other: Voiding Method Bedside Commode # Voids 1 2 # Bowel Movements 1 Weight 44.906 kg 01/24/19 16:29 01/24/19 16:29 Assessment and Plan Assessment: Assessment #1 generalized weakness and fatigue #2 change in mental status #3 cough productive of sputum #4 chronic obstructive pulmonary disease #5 significant history of smoking Plan #1 We will rule out acute coronary event. I will follow-up with the serial cardiac enzymes #2 I will obtain an echocardiogram was Doppler to establish LV function #3 Continue monitor the patient for any arrhythmia #4 Follow-up with the patient Thank you for allowing us participate in her care
[2019-01-25] MEDS: NITROGLYCERIN EXTENDED RELEASE 2.5 MG CAPSULE.ER PO SCH (09:46)
[2019-01-25] MEDS: DIVALPROEX ER 500 MG TAB.ER.24H PO SCH (09:46)
--- NOTE | 2019-01-25 10:08 | CONS ---
CONSULTATION PULMONARY/CRITICAL CARE CONSULTATION: DATE OF SERVICE: 01/25/2019 This is a 68-year-old female who we were asked to see because of weakness. She apparently presented to the emergency department with weakness. Symptoms have progressed over the past week. She was apparently a very poor historian in the emergency room and most of the history was obtained from the ex-. She apparently has chronic memory issues. She was apparently hospitalized recently in a different facility for syncope. The patient states that she apparently had a near syncopal episode and went to go see her primary care physician who directed her to the emergency room to be evaluated and probably placed some place such as a halfway or rehab facility. She is wheelchair bound. The patient apparently also had some difficulty in breathing an spent just an hour and a half or 2 hours on BiPAP. Doing much better now. Does not appear that the lung issue is a major component here. Apparently according to the ex-. No chest pain or leg pain or leg swelling. No fever, no chills. No nausea, vomiting or diarrhea. HOME MEDICATIONS: Reviewed. They include Depakote, Prozac, Lipitor, Duragesic patch, aspirin, Neurontin, Synthroid, Zyprexa, Ditropan, Mysoline, propranolol and oxycodone. ALLERGIES: Include IVP DYE, CODEINE and MORPHINE. MEDICAL HISTORY: Reviewed. She apparently has a history of COPD, CVA, DVT, hyperlipidemia, DJD, rheumatoid arthritis, hypothyroidism, throat cancer, fibrocystic breast disease shingles rest, recent reflex sympathetic dystrophy, hepatitis C, ovarian cyst, cardiac arrest in 1971 during hip surgery, congenital hip disease and third-degree ledesma on the right hip. SURGICAL HISTORY: Includes among other things, breast surgery, hysterectomy, orthopedic procedures, thyroidectomy, 11 total hip replacements, cyst removal from the breast and umbilical hernia repair. SOCIAL HISTORY: Positive for ongoing tobacco use. She does use marijuana. No alcohol use. FAMILY HISTORY: Positive for lung cancer. Again, she is a very poor historian. Most of the information is obtained from the medical record and from the ER mariela. REVIEW OF SYSTEMS: CONSTITUTIONAL: Weakness. NEUROLOGIC: Negative. HEENT: Negative. CARDIOVASCULAR: Negative. PULMONARY: Shortness of breath, resolved. GI: Negative. : Negative. RHEUMATOLOGIC: Negative. IMMUNOLOGIC: Negative. ENDOCRINOLOGIC: Negative. DERMATOLOGIC: Negative. Current vital signs are reviewed, temperature is 97.5, heart rate 66, respiratory rate 18, blood pressure 131/75 mean 93, and 3 L saturation 98%. Appears in no acute distress. HEENT: Examination is grossly unremarkable. Mucous membranes are dry. NECK: Supple. Full range of motion. No adenopathy or thyromegaly. Neck veins are flat. CARDIOVASCULAR: Examination reveals regular rhythm and rate. Heart rate 66. S1, S2 normal. No murmur. LUNGS: Revealed Clear but diminished breath sounds. No wheezes, rhonchi, or crackles. ABDOMEN: Soft. EXTREMITIES: Intact. No cyanosis, clubbing, or edema. SKIN: Without rash. NEUROLOGIC: Examination is difficult to assess. She is awake and alert. She seems a bit confused. Does move all 4 extremities well. LABS: Reviewed. CBC is completely normal. A blood gas is relatively stable. PO2 of 77, pCO2 of 57, and a pH is normal. This is consistent with a well compensated respiratory acidosis likely from her COPD. This blood gas was done on 28% oxygen. Sodium 128, potassium 4.1, chloride 86, CO2 is 36. AST and ALT were 52 and 63 respectively. Her TSH was quite high at 40.2. This suggests that she is not taking her thyroid hormone. Urine was negative. Lactic acid was 0.5. A chest x-ray shows no evidence of any cardiopulmonary disease. ASSESSMENT: 1. Confusion, disorientation and near syncope with profound weakness, with possible need for placement in a rehab facility or halfway. 2. Chronic obstructive pulmonary disease, not particularly active at this time. 3. History of deep venous thrombosis. 4. History of hyperlipidemia. 5. Degenerative joint disease. 6. Rheumatoid arthritis. 7. History of cerebrovascular accident. 8. History of hepatitis C. 9. Thyroid cancer. 10.Fibrocystic breast disease. 11.Status post cardiac arrest following hip surgery. 12.Multiple other medical problems and comorbidities. PLAN: The patient's COPD is not particularly active. I will look at the medications that she is currently on. Likely all she needs is DuoNeb. No additional recommendations are made. Does not need steroids at this time. Will continue to follow. Apparently the plan is placement into a halfway or rehab facility. Pulmonary status is I mentioned is relatively stable at this time. MMODL / IJN: [id number] /
[2019-01-25 12:08] VITALS: BMI 16.5
--- NOTE | 2019-01-25 13:43 | ECHOF ---
Referral Reason:syncope MEASUREMENTS -------- HEIGHT: 165.1 cm WEIGHT: 44.9 kg BP: IVSd: 1.3 cm (0.6 - 1.1) LVIDd: 2.8 cm (3.9 - 5.3) LVPWd: 1.2 cm (0.6 - 1.1) IVSs: 1.3 cm LVIDs: 1.2 cm LVPWs: 1.3 cm Ao Diam: 2.8 cm (2.0 - 3.7) AV Cusp: 1.5 cm (1.5 - 2.6) LA Diam: 2.7 cm (2.7 - 3.8) EPSS: 3.0 cm MV E Stan: 0.57 m/s MV DecT: 292 ms MV A Stan: 0.61 m/s MV E/A Ratio: 0.94 AR PHT: 1200 ms RAP: 5.00 mmHg RVSP: 8.64 mmHg MV EF SLOPE: 128.19 mm/s (70 - 150) MV EXCURSION: 1.96 cm (> 18.000) FINDINGS -------- Sinus rhythm. This was a technically good study. The left ventricular size is normal. There is mild concentric left ventricular hypertrophy. Overa ll left ventricular systolic function is normal with, an EF between 55 - 60 %. The right ventricle is normal in size. The left atrial size is normal. The right atrial size is normal. Aortic valve is trileaflet and is mildly thickened. There is mild aortic regurgitation. The mitral valve leaflets are mildly thickened. Mild mitral regurgitation is present. Mild tricuspid regurgitation present. Right ventricular systolic pressure is normal at < 35 mmHg. The aortic root size is normal. The inferior vena cava was not well visualized. There is a small, generalized pericardial effusion present. CONCLUSIONS -------- 1. Sinus rhythm. 2. This was a technically good study. 3. The left ventricular size is normal. 4. There is mild concentric left ventricular hypertrophy. 5. Overall left ventricular systolic function is normal with, an EF between 55 - 60 %. 6. The right ventricle is normal in size. 7. The left atrial size is normal. 8. The right atrial size is normal. 9. Aortic valve is trileaflet and is mildly thickened. 10. There is mild aortic regurgitation. 11. The mitral valve leaflets are mildly thickened. 12. Mild mitral regurgitation is present. 13. Mild tricuspid regurgitation present. 14. Right ventricular systolic pressure is normal at < 35 mmHg. 15. The aortic root size is normal. 16. The inferior vena cava was not well visualized. 17. There is a small, generalized pericardial effusion present. CATERPILLAR OPERATOR: Sylvia Washington RDCS
[2019-01-25] MEDS: SODIUM CHLORIDE 0.9% 1,000 ML IV SCH ×2 (16:38→17:44)
--- NOTE | 2019-01-25 17:30 | HP ---
HISTORY AND PHYSICAL DATE OF ADMISSION: 01/25/2019 DATE OF SERVICE: 01/25/2019. PRESENTING COMPLAINT: Weak and tired. HISTORY OF PRESENTING COMPLAINT: This is a 68-year-old patient of Dr. Fam. Chronic stable medical conditions include hyperlipidemia, rheumatoid arthritis, reflux, sympathetic dystrophy, depression, on home oxygen 2 L, hepatitis C. The patient continues to smoke. The patient lives with her ex-. The patient has been progressively getting weak and weaker, sometimes passes out. Apparently, she was at facility. The patient is also rather congested, short of breath. Has got a cough. Appetite has been okay, having bowel movements. No chest pain. No obvious palpitations. Admitted for the same. REVIEW OF SYSTEMS: CONSTITUTIONAL: Weak and tired. HEENT: None. RESPIRATORY: As above. CARDIOVASCULAR: None. GASTROINTESTINAL: None. GENITOURINARY: None. MUSCULOSKELETAL: Pain in joints. DERMATOLOGICAL: Some bruising. HEMATOLOGICAL: None. LYMPHATICS: None. PSYCHIATRY: Anxiety. NEUROLOGICAL: No focal symptoms. PAST MEDICAL HISTORY: COPD, stroke, DVT, hyperlipidemia, osteoarthritis, rheumatoid arthritis, hepatitis C, shingles, RSD, thyroid cancer with couple lymph nodes removed in 1995, fibrocystic breast disease, ovarian cysts, cardiac arrest in 1971 during hip surgery, congenital hip disease with dislocation, TB 98, third-degree ledesma in the right hip area. PAST SURGICAL HISTORY: Breast surgery, hysterectomy, orthopedic surgery, thyroidectomy, total hip replacement, cysts removed from bilateral breast, umbilical surgery. PSYCH HISTORY: Anxiety, depression. SOCIAL HISTORY: , lives with her ex-. Uses a cane. Smoking close to over 50 years, was smoking 2 packs a day and now doing half a pack a day. Does use marijuana. Decreased appetite is okay. FAMILY HISTORY: Of TB. HOME MEDICATIONS: 1. Oxycodone 30 mg p.o. q.i.d. 2. Duragesic patch 75 every 72 hours. 3. Propranolol 10 mg q.i.d. 4. Mysoline 50 mg q.i.d. 5. Ditropan 10 mg at bedtime. 6. Zyprexa 10 mg b.i.d. 7. Synthroid 25 mcg daily. 8. Neurontin 600 mg t.i.d. 9. Prozac 40 mg daily. 10.Depakote ER 500 mg p.o. daily. 11.Lipitor 10 mg p.o. daily. 12.Aspirin 81 mg p.o. daily p.r.n. ALLERGIES: IV CONTRAST DYE, CODEINE, MORPHINE. PHYSICAL EXAMINATION: VITAL SIGNS: Temperature 97.5, pulse 6-, respiratory 20, blood pressure 150/82, pulse ox 96% on 2 L. GENERAL APPEARANCE: Thin built, BMI 16.5. Sitting up, lethargic. Dozes off, but able to answer questions. EYES: Pupils equal. Conjunctivae normal. HEENT: External appearance of nose and ears normal. Oral cavity normal. NECK: JVD not raised. Mass not palpable. RESPIRATORY: Effort increased. LUNGS: Decreased breath sounds, wheezing. CARDIOVASCULAR: First and second sounds normal. No edema. ABDOMEN: Soft, nontender. Liver and spleen not palpable. LYMPHATICS: No lymph nodes palpable in the neck and axilla. PSYCHIATRY: Lethargic. Dozes off, but able to answer questions. NEUROLOGICAL: Pupils equal. Cranial nerves grossly intact. Power and sensation grossly intact. MUSCULOSKELETAL: Diffuse wasting of the muscles. INVESTIGATIONS: White count 9.6, hemoglobin 13.0, potassium 4.1, BUN 16, creatinine 0.74, TSH 40.2, free T3 1.8. UA negative. Valproic acid 25.0. ASSESSMENT: 1. This is a patient who presented with frequent falls but is rather lethargic, though arousable. The patient is getting a lot of pain medications and this likely metabolic encephalopathy due to the same. Need to back off on some of these medications. 2. Acute chronic obstructive pulmonary disease exacerbation in a current smoker. 3. Chronic nicotine dependence, patient is a cigarette smoker. 4. Chronic reflex sympathetic dystrophy. 5. Chronic hypoxic respiratory failure on home oxygen from chronic obstructive pulmonary disease. 6. Hepatitis C. 7. Depression, not otherwise specified. 8. Moderate protein-calorie malnutrition. The patient's BMI 17, possibly sick euthyroid syndrome. The patient's TSH is significantly elevated, but clinically does not appear to be hypothyroid. Hence we will hold off changing any of her medications. 9. Tremors. PLAN: At this point, we will decreased the patient's Neurontin to 100 mg 3 times a day. We will also decrease the Duragesic patch to 50 mcg. Encourage oral intake. Get PT, OT to see the case. The patient is getting IV fluids. Give bronchodilators, inhaled steroids, Mucinex, nicotine patch. Overall prognosis is guarded. Copy to Dr. Fam. BARBI / NBA: [id number] /
[2019-01-25] MEDS: NICOTINE 21MG/24HR PATCH TRANSDERM SCH (17:37)
[2019-01-25] MEDS: ONDANSETRON 4 MG/2 ML VIAL IVP PRN (17:42)
[2019-01-25] MEDS: IMIPRAMINE 25 MG TAB PO SCH (21:17)
[2019-01-25] MEDS: OXYBUTYNIN 10 MG TAB.ER.24 PO SCH (21:17)
[2019-01-25] MEDS: guaiFENesin 600 MG TABLET.ER PO SCH (21:17)
[2019-01-26] MEDS: IPRATROPIUM-ALBUTEROL 3 ML NEB INHALATION SCH ×6 (04:15→23:27)
[2019-01-26] MEDS: LEVOTHYROXINE 25 MCG TAB PO SCH (05:28)
[2019-01-26] MEDS: SYMBICORT 160-4.5 MCG INHALER INHALATION SCH ×2 (07:50→20:49)
--- NOTE | 2019-01-26 08:55 | PN ---
PROGRESS NOTE DATE OF SERVICE: 01/26/2019 This is a 68-year-old female who I saw yesterday in consultation. The patient does have underlying COPD, which is not particularly active at this time. She was essentially admitted because of confusion, disorientation and near syncope with weakness and possible need for placement in a rehab facility or a fdc. Today, the patient looks relatively comfortable. She tells me she is very scared because she does not know what is happening. She is very confused. She does have a history of DVT, hyperlipidemia, degenerative joint disease, rheumatoid arthritis, CVA, hepatitis C, thyroid cancer, fibrocystic breast disease, status post cardiac arrest following hip surgery and multiple other medical problems and comorbidities. Again from the COPD standpoint, she is very stable. She is not having any respiratory distress. She is not having any conversational dyspnea or use of accessory muscles. Current vital signs are reviewed, temperature 97.6, heart rate 65, respiratory rate 16, blood pressure 138/84 mean 102 and 2 L saturation 98%. Appears in no acute distress. HEENT: Examination is grossly unremarkable. Nasal O2 in place. NECK: Supple. Full range of motion. No adenopathy or thyromegaly. CARDIOVASCULAR: Examination reveals regular rhythm rate. Heart rate 65. S1, S2 normal. No S3, S4, murmur. LUNGS: Reveal clear but diminished breath sounds. No wheezes or rhonchi. ABDOMEN: Soft. Bowel sounds are heard. EXTREMITIES: Intact. No cyanosis, clubbing, or edema. SKIN: With multiple areas of ecchymoses. NEUROLOGIC: Examination is difficult to assess given what appears to be a dementia in this patient. LAB DATA: Reviewed. Nothing back from today. No recent chest x-ray to report. Medications are reviewed. ASSESSMENT: 1. Confusion, disorientation, and near syncope with profound weakness, with possible need for placement in a rehab facility or fdc. 2. Chronic obstructive pulmonary disease, inactive. 3. History of deep venous thrombosis. 4. History of hyperlipidemia. 5. Degenerative joint disease. 6. Rheumatoid arthritis. 7. History of cerebrovascular accident. 8. History of hepatitis C. 9. History of thyroid cancer. 10.Fibrocystic breast disease. 11.Status post cardiac arrest following hip surgery. PLAN: From the COPD standpoint, she is doing well. She remains on DuoNeb. Will continue to follow. Likely she will be placed in some sort of rehab facility or fdc. Her COPD is currently inactive. Will continue to follow. MMODL / IJN: [id number] /
[2019-01-26] MEDS: ATORVASTATIN 10 MG TAB PO SCH (09:15)
[2019-01-26] MEDS: DIVALPROEX ER 500 MG TAB.ER.24H PO SCH (09:16)
[2019-01-26] MEDS: GABAPENTIN 300 MG CAP PO SCH ×3 (09:16→21:06)
[2019-01-26] MEDS: FLUoxetine HCL 20 MG CAP PO SCH (09:16)
[2019-01-26] MEDS: methylPREDNISolone 4 MG TAB TAPER PO SCH (09:16)
[2019-01-26] MEDS: guaiFENesin 600 MG TABLET.ER PO SCH ×2 (09:16→21:07)
[2019-01-26] MEDS: OLANZapine 10 MG TAB PO SCH ×2 (09:17→21:06)
[2019-01-26] MEDS: NITROGLYCERIN EXTENDED RELEASE 2.5 MG CAPSULE.ER PO SCH (09:17)
[2019-01-26] MEDS: NICOTINE 21MG/24HR PATCH TRANSDERM SCH (09:17)
[2019-01-26] MEDS: PRIMIDONE 50 MG TAB PO SCH ×3 (09:18→21:06)
[2019-01-26] MEDS: PROPRANOLOL 10 MG TAB PO SCH ×4 (09:19→21:06)
[2019-01-26] MEDS: ONDANSETRON 4 MG/2 ML VIAL IVP PRN ×2 (09:22→19:39)
[2019-01-26] MEDS: SODIUM CHLORIDE 0.9% 1,000 ML IV SCH ×2 (13:42→17:35)
[2019-01-26] MEDS: IMIPRAMINE 25 MG TAB PO SCH (21:05)
[2019-01-26] MEDS: OXYBUTYNIN 10 MG TAB.ER.24 PO SCH (21:06)
[2019-01-27] MEDS: IPRATROPIUM-ALBUTEROL 3 ML NEB INHALATION SCH ×5 (03:45→21:01)
[2019-01-27] MEDS: LEVOTHYROXINE 25 MCG TAB PO SCH (06:14)
[2019-01-27] MEDS: SYMBICORT 160-4.5 MCG INHALER INHALATION SCH ×2 (07:42→21:01)
[2019-01-27] MEDS: NICOTINE 21MG/24HR PATCH TRANSDERM SCH (08:12)
[2019-01-27] MEDS: FLUoxetine HCL 20 MG CAP PO SCH (08:12)
[2019-01-27] MEDS: guaiFENesin 600 MG TABLET.ER PO SCH ×2 (08:13→20:24)
[2019-01-27] MEDS: ATORVASTATIN 10 MG TAB PO SCH (08:13)
[2019-01-27] MEDS: GABAPENTIN 300 MG CAP PO SCH ×3 (08:13→20:24)
[2019-01-27] MEDS: methylPREDNISolone 4 MG TAB TAPER PO SCH (08:15)
[2019-01-27] MEDS: NITROGLYCERIN EXTENDED RELEASE 2.5 MG CAPSULE.ER PO SCH (08:15)
[2019-01-27] MEDS: PRIMIDONE 50 MG TAB PO SCH ×3 (08:16→20:24)
[2019-01-27] MEDS: OLANZapine 10 MG TAB PO SCH ×2 (08:16→20:23)
[2019-01-27] MEDS: PROPRANOLOL 10 MG TAB PO SCH ×4 (08:16→20:23)
[2019-01-27] MEDS: DIVALPROEX ER 500 MG TAB.ER.24H PO SCH (09:10)
[2019-01-27] MEDS: SODIUM CHLORIDE 0.9% 1,000 ML IV SCH (13:50)
--- NOTE | 2019-01-27 14:36 | PN ---
PROGRESS NOTE DATE OF SERVICE: 01/27/2019 HISTORY: 68-year-old female who I saw in consultation 2 days ago. She has a history of underlying COPD which is not particularly active at this time. She was essentially admitted with a diagnosis of confusion, disorientation and near-syncope with weakness. The patient is likely to be placed in a residential. Today she is doing well from the pulmonary standpoint. No shortness of breath, chest tightness, wheezing, cough or phlegm production above and beyond her baseline. PHYSICAL EXAMINATION: VITAL SIGNS: Current vital signs are reviewed. Temperature is 97.8, heart rate 72, respiratory rate 16, blood pressure 161/90, mean 113. 2 L saturation 98%. GENERAL: Appears in no acute distress. HEENT examination is grossly unremarkable. Mucous membranes are moist. NECK is supple. Full range of motion. No adenopathy. CARDIOVASCULAR examination reveals regular rhythm and rate. S1, S2 normal. Heart rate 74. No murmur. LUNGS reveal clear but somewhat diminished breath sounds. No wheezes or rhonchi. No crackles. ABDOMEN is soft. Bowel sounds are heard. EXTREMITIES are intact. No cyanosis, clubbing, or edema. SKIN without rash. NEUROLOGIC examination is brief but nonfocal. LABS: Reviewed. Nothing new to report. No new x-rays to report. Medications are reviewed. They seem to be appropriate. ASSESSMENT: 1. Confusion, disorientation and near syncope with profound weakness, and need for placement in a rehab facility or residential. 2. Chronic obstructive pulmonary disease, inactive. 3. History of deep venous thrombosis (DVT). 4. History of hyperlipidemia. 5. Degenerative joint disease. 6. Rheumatoid arthritis. 7. History of cerebrovascular accident. 8. History of hepatitis C. 9. History of thyroid cancer. 10.Fibrocystic breast disease. 11.Status post cardiac arrest following hip surgery. PLAN: From the COPD standpoint, the patient is stable. The patient is on appropriate medications. The patient may be discharged to rehab facility in the next day or so. I am not sure which day she is going. From my perspective, her COPD is stable and inactive. Problem list, allergies, medications and so forth are all reviewed. We will continue to follow. MMODL / IJN: [id number] /
--- NOTE | 2019-01-27 17:07 | P.PN ---
Subjective Progress Note Date: 01/27/19 This is a 68-year-old female who was seen by Dr. Walsh for evaluation of presyncope. EKG did not reveal any acute abnormalities. Patient has history of cancer, COPD, CVA and also deep venous thrombosis.. Patient cardiac enzymes studies are within normal limits. Patient had an echo [place] which showed normal LV function. No significant cardiac arrhythmias are noted. So far. No further cardiac workup is suggested at this time Objective - Vital Signs Vital signs: Vital Signs Temp 97.8 F 01/27/19 11:48 Pulse 74 01/27/19 16:47 Resp 16 01/27/19 15:52 BP 161/90 01/27/19 11:48 Pulse Ox 98 01/27/19 11:48 Intake & Output 01/26/19 01/27/19 01/27/19 18:59 06:59 18:59 Intake Total 600 590 Balance 600 590 Intake: Oral 600 590 Other: Voiding Method Bedside Commode Bedside Commode Bedside Commode # Voids 4 2 4 - Exam GENERAL EXAM: Patient is alert and oriented and doesn't appear to be in any acute distress. Patient appears to be frail and weak HEENT: Normocephalic. Normal reaction of pupils, equal size, normal range of extraocular motion. No erythema or exudates in the throat. NECK: No masses, no nuchal rigidity. CHEST: No chest wall deformity. LUNGS: Equal air entry with no crackles or wheeze. HEART: S1 and S2 normal with no audible mumurs or gallops. Regular rhythm, femorals equal on both sides.. ABDOMEN: No hepatosplenomegaly, normal bowel sounds, no guarding or rigidity. SKIN: No rashes CENTRAL NERVOUS SYSTEM: No focal deficits. EXTREMITIES: No cyanosis, clubbing or edema. - Labs CBC & Chem 7: 01/24/19 16:29 01/24/19 16:29 Assessment and Plan (1) Acute exacerbation of chronic obstructive pulmonary disease (COPD) Current Visit: Yes Status: Acute Code(s): J44.1 - CHRONIC OBSTRUCTIVE PULMONARY DISEASE W (ACUTE) EXACERBATION SNOMED Code(s): 634973572 (2) Near syncope Current Visit: Yes Status: Acute Code(s): R55 - SYNCOPE AND COLLAPSE SNOMED Code(s): 275709270 Plan: Patient's cardiac enzymes are negative. Echo showed normal LV function. No significant cardiac arrhythmias are documented. We'll see her as needed
[2019-01-27] MEDS: OXYBUTYNIN 10 MG TAB.ER.24 PO SCH (20:23)
[2019-01-27] MEDS: IMIPRAMINE 25 MG TAB PO SCH (20:24)
--- NOTE | 2019-01-27 23:24 | PN ---
PROGRESS NOTE DATE OF SERVICE: January 27, 2019. PRESENTING COMPLAINT: Tired. INTERVAL HISTORY: The patient admitted with acute metabolic encephalopathy from multiple pain medications, COPD exacerbation, weak and tired, tolerating a diet. Lying in bed, more awake. The patient's cough is more productive now. REVIEW OF SYSTEMS: Done for constitutional, cardiovascular, GI, pulmonary and relevant findings as above. CURRENT MEDICATIONS: Reviewed that include Prozac, Neurontin 300 mg 3 times a day, Mucinex, oxycodone 30 mg q.i.d., IV fluids. PHYSICAL EXAMINATION: VITAL SIGNS: Temperature 97.8, pulse 71, respiratory rate 20, blood pressure 160/90, pulse ox 98% on 2 L. GENERAL APPEARANCE: Lying in bed, more awake. EYES: Pupils are equal. Conjunctivae normal. NECK: JVD not raised. Mass not palpable. RESPIRATORY: Effort increased. LUNGS: Decreased breath sounds. Some wheezing. CARDIOVASCULAR: First and second sounds normal. No edema. ABDOMEN: Soft, nontender. Liver and spleen not palpable. PSYCHIATRY: More awake, answering questions. INVESTIGATIONS: No blood work from today. ASSESSMENT: 1. Acute metabolic encephalopathy from multiple pain medications, these have been scaled back. The patient doing much better, actually does not complain of pain at all. 2. Acute chronic obstructive pulmonary disease exacerbation in a current smoker. 3. Chronic nicotine dependence. Patient is a cigarette smoker. 4. Chronic reflex sympathetic dystrophy. 5. Chronic hypoxic respiratory failure on home oxygen from chronic obstructive pulmonary disease. 6. Hepatitis C. 7. Depression, not otherwise specified. 8. Moderate protein-calorie malnutrition. 9. Sick euthyroid syndrome. 10.Essential tremors. PLAN: Continue current medication and treatment plan. I do not intend to increase patient's Duragesic patch. Patient is doing well on the current medications. The patient will be discharged to the [facility], hopefully can be done tomorrow. MMODL / IJN: [id number] /
--- NOTE | 2019-01-27 23:24 | PN ---
PROGRESS NOTE DATE OF SERVICE: January 26, 2019. PRESENTING COMPLAINT: Weak and tired. INTERVAL HISTORY: The patient presented with metabolic encephalopathy, COPD exacerbation, in a current smoker. Tired. Did tolerate some diet. Has been out of bed, still wheezing. REVIEW OF SYSTEMS: Done for constitutional, cardiovascular, GI, pulmonary and relevant findings as above. CURRENT MEDICATIONS: Reviewed that include DuoNeb, Medrol. PHYSICAL EXAMINATION: VITAL SIGNS: Temperature 97.7, pulse 72, respiration 16, blood pressure 150/82, pulse ox 98% on 2 L. GENERAL APPEARANCE: Lying in bed, tired-appearing. EYES: Pupils equal. Conjunctivae normal. NECK: JVD unable to assess. Mass not palpable. RESPIRATORY: Effort increased. LUNGS: Decreased breath sounds. Expiratory wheezing. Some crackles. CARDIOVASCULAR: First and second sounds normal. No edema. ABDOMEN: Soft, nontender. Liver and spleen not palpable. PSYCHIATRY: More awake, answering questions. INVESTIGATIONS: Troponin negative. ASSESSMENT: 1. Acute metabolic encephalopathy from pain medications. Doing somewhat better. Some of these were scaled back. 2. Acute chronic obstructive pulmonary disease exacerbation in a current smoker. 3. Chronic nicotine dependence, patient is a cigarette smoker. 4. Chronic reflex sympathetic dystrophy. 5. Chronic hypoxic respiratory failure on home oxygen from chronic obstructive pulmonary disease. 6. Hepatitis C. 7. Depression, not otherwise specified. 8. Moderate protein-calorie malnutrition from decreased oral intake. 9. Sick euthyroid syndrome. 10.Essential tremors. PLAN: Continue current medication and treatment plan. The patient definitely more awake, improving, looking for patient to go to the [facility]. MMODL / IJN: [id number] /
[2019-01-28] MEDS: LEVOTHYROXINE 25 MCG TAB PO SCH (05:48)
[2019-01-28 07:02] LABS: Basophils # (A) 0.1 k/uL (0-0.2); Basophils % (A) 1 %; Eosinophils # (A) 0.1 k/uL (0-0.7); Eosinophils % (A) 1 %; HCT 43.6 % (34.0-46.0); HGB 14.5 gm/dL (11.4-16.0); Lymphocytes # (A) 1.2 k/uL (1.0-4.8); Lymphocytes % (A) 13 %; MCHC 33.2 g/dL (31.0-37.0); MCV 99.5 fL (80.0-100.0); Mean Platelet Volume 6.3; Monocytes # (A) 0.7 k/uL (0-1.0); Monocytes % (A) 7 %; Neutrophils # (A) 7.1 k/uL (1.3-7.7); Neutrophils % (A) 77 %; Platelet Count 370 k/uL (150-450); RBC 4.38 m/uL (3.80-5.40); RDW 13.2 % (11.5-15.5); WBC 9.3 k/uL (3.8-10.6)
[2019-01-28 07:23] LABS: African American GFR (CKD) >90 (>60 ml/min/1.73 sqM); Anion Gap 5 mmol/L; Blood Urea Nitrogen 9 mg/dL (7-17); Calcium 9.1 mg/dL (8.4-10.2); Carbon Dioxide 35 mmol/L (22-30); Chloride 90 mmol/L (98-107); Glucose 109 mg/dL (74-99); Potassium 4.1 mmol/L (3.5-5.1); Sodium 130 mmol/L (137-145)
[2019-01-28] MEDS: IPRATROPIUM-ALBUTEROL 3 ML NEB INHALATION SCH ×2 (08:39→13:05)
[2019-01-28] MEDS: SYMBICORT 160-4.5 MCG INHALER INHALATION SCH (08:39)
[2019-01-28] MEDS: NICOTINE 21MG/24HR PATCH TRANSDERM SCH (08:52)
[2019-01-28] MEDS: PRIMIDONE 50 MG TAB PO SCH (08:53)
[2019-01-28] MEDS: methylPREDNISolone 4 MG TAB TAPER PO SCH (08:53)
[2019-01-28] MEDS: NITROGLYCERIN EXTENDED RELEASE 2.5 MG CAPSULE.ER PO SCH (08:54)
[2019-01-28] MEDS: ATORVASTATIN 10 MG TAB PO SCH (08:54)
[2019-01-28] MEDS: GABAPENTIN 300 MG CAP PO SCH (08:55)
[2019-01-28] MEDS: guaiFENesin 600 MG TABLET.ER PO SCH (08:55)
[2019-01-28] MEDS: OLANZapine 10 MG TAB PO SCH (08:55)
[2019-01-28] MEDS: DIVALPROEX ER 500 MG TAB.ER.24H PO SCH (08:55)
[2019-01-28] MEDS: PROPRANOLOL 10 MG TAB PO SCH ×2 (08:55→13:31)
[2019-01-28] MEDS: FLUoxetine HCL 20 MG CAP PO SCH (08:55)
[2019-01-28 12:41] VITALS: BP 163/92; RESP 16; TEMP 97.6
[2019-01-28 13:08] VITALS: PULSE 72
--- NOTE | 2019-01-28 14:01 | DS ---
DISCHARGE SUMMARY DATE OF ADMISSION: 01/24/2019 DATE OF DISCHARGE: 01/28/2019 FINAL DIAGNOSES: 1. Acute metabolic encephalopathy from pain medications. 2. Acute severe chronic obstructive pulmonary disease exacerbation in a current smoker. 3. Chronic nicotine dependence, patient is a cigarette smoker. 4. Chronic reflex sympathetic dystrophy. 5. Chronic hypoxic respiratory failure on home oxygen from chronic obstructive pulmonary disease. 6. Hepatitis C. 7. Depression, not otherwise specified. 8. Moderate protein-calorie malnutrition. 9. Sick euthyroid syndrome. 10.Essential tremors. HOSPITAL COURSE: This patient was taking quite hefty dose of Duragesic, oxycodone and also Neurontin. All adding up to making her really drowsy and getting syncope. Patient's Duragesic patch was discontinued. Neurontin dose was cut back and so was primidone. Patient greatly improved in the meantime. Appetite is getting better. Patient also advised against smoking. Patient did have a 2-D echocardiogram, showed EF of 55%-60%. Today, care was discussed at length with the patient and daughter and many questions were answered. Discussion and discharge planning more than 35 minutes. PHYSICAL EXAMINATION: Temperature 97.6, pulse 63, respirations 16, blood pressure 163/92, pulse ox 96% on room air. LUNGS: Decreased breath sounds. PSYCH: AO x3. Mood is slightly anxious. ABDOMEN: Soft, nontender. INVESTIGATIONS: Potassium 4.1, BUN 9, creatinine 0.36. Troponins were negative. A 2D echo showed preserved LV function. CONSULTATION: 1. Dr. Hart from Pulmonary. 2. Dr. Moyer from Cardiology. DISCHARGE MEDICATIONS: 1. Depakote ER 500 mg p.o. daily. 2. Prozac 40 mg p.o. daily. 3. Lipitor 10 mg p.o. daily. 4. Aspirin 81 mg p.o. daily. 5. Synthroid 25 mcg p.o. daily. 6. Zyprexa 10 mg p.o. b.i.d. 7. Ditropan XL 10 mg q.h.s. 8. Propranolol 10 mg q.i.d. 9. Symbicort 160/4.5 two puffs b.i.d. 10.Neurontin 300 mg p.o. t.i.d., reduced dose. 11.Tofranil 25 mg q.h.s. 12.DuoNeb q.i.d. 13.Nicotine 21 mg patch daily. 14.Nitro-Bid 2.5 p.o. daily. 15.Mysoline 50 mg p.o. t.i.d., reduced dose. 16.Mucinex 200 mg p.o. q.12. 17.Oxycodone IR 30 mg p.o. q.i.d. 18.Prednisone taper. 19.Discontinued medication Duragesic patch. DISPOSITION: [facility]. Follow up with Dr. Jose Alfredo Fam from [place]. MMODL / IJN: [id number] /
--- NOTE | 2019-01-28 16:29 | P.PN ---
Subjective Progress Note Date: 01/28/19 Principal diagnosis: Altered mental status, and near syncopal episode with profound weakness. On 09/05/2018 patient seen in follow-up on medical surgical floor. She is awake and alert today, she responds appropriately. Patient is in the shortness of breath, she still weak and tired, but overall her mentation has improved, no specific complaints, her cough is occasional, with production of some small amount of sputum. Vital signs are stable. Have been reviewed, showing white blood cell count of 9.3, hemoglobin is 14.5, serum sodium is improving, up to 1:30, potassium is 4.1, chloride is 90, BUN is 9, creatinine is 0.36, patient is tolerating oral intake. No acute events overnight, patient is being discharged to a subacute rehabilitation facility today. The patient is still smoking, and smoking cessation counseling was done. Objective - Vital Signs Vital signs: Vital Signs Temp 97.6 F 01/28/19 12:40 Pulse 72 01/28/19 13:16 Resp 16 01/28/19 12:40 BP 163/92 01/28/19 12:40 Pulse Ox 96 01/28/19 12:40 Intake & Output 01/27/19 01/28/19 01/28/19 18:59 06:59 18:59 Intake Total 1155 740 Output Total 800 Balance 355 740 Intake: Intake, IV Titration 325 Amount Sodium Chloride 0.9% 1, 325 000 ml @ 75 mls/hr IV . [id number] JOSUE Rx#:[id number] Oral 830 740 Output: Urine 800 Other: Voiding Method Bedside Commode Bedside Commode # Voids 4 3 3 - Exam GENERAL EXAM: Alert, pleasant, 68-year-old frail looking thin white female on room air, with pulse ox 96% comfortable in no apparent distress. HEAD: Normocephalic/atraumatic. EYES: Normal reaction of pupils, equal size. Conjunctiva pink, sclera white. NOSE: Clear with pink turbinates. THROAT: No erythema or exudates. NECK: No masses, no JVD, no thyroid enlargement, no adenopathy. CHEST: No chest wall deformity. Symmetrical expansion. LUNGS: Equal air entry with diminished breath sounds CVS: Regular rate and rhythm, normal S1 and S2, no gallops, no murmurs, no rubs ABDOMEN: Soft, nontender. No hepatosplenomegaly, normal bowel sounds, no guarding or rigidity. EXTREMITIES: No clubbing, no edema, no cyanosis, 2+ pulses and upper and lower extremities. MUSCULOSKELETAL: Muscle strength and tone normal. SPINE: No scoliosis or deformity SKIN: No rashes CENTRAL NERVOUS SYSTEM: Alert and oriented -3. No focal deficits, tone is normal in all 4 extremities. PSYCHIATRIC: Alert and oriented -3. Appropriate affect. Intact judgment and insight. - Labs CBC & Chem 7: 01/28/19 06:48 01/28/19 06:48 Labs: Abnormal Lab Results - Last 24 Hours (Table) 01/28/19 Range/Units 06:48 Sodium 130 L (137-145) mmol/L Chloride 90 L (98-107) mmol/L Carbon Dioxide 35 H (22-30) mmol/L Creatinine 0.36 L (0.52-1.04) mg/dL Glucose 109 H (74-99) mg/dL Assessment and Plan Plan: 1. Altered mental status and near syncopal episode on presentation, likely related to acute metabolic encephalopathy 2. Severe COPD, currently stable 3. Chronic and ongoing nicotine dependence 4. Chronic hypoxemic respiratory failure on home oxygen 5. History of hepatitis C 6. Hypothyroidism 7. History of CVA 8. History of DVT Plan: Patient is doing well, stable, no acute events overnight, we will increase the oral Synthroid to 75 mics daily. Patient is being discharged to subacute rehabilitation center. Stable for discharge from pulmonary perspective, smoking cessation counseling was done. I performed a history & physical examination of the patient and discussed their management with my nurse practitioner, Nancie Bryant. I reviewed the nurse practitioner's note and agree with the documented findings and plan of care. Lung sounds are diminished breath sounds. The findings and the impression was discussed with the patient. I attest to the documentation by the nurse practitioner. Time with Patient: Less than 30
[2019-01-29] MEDS ORDERED: LEVOTHYROXINE 75 MCG TAB PO SCH (06:30)
== END 2019-01-28 15:10 | DRG 92 ==
LOC: EC 15:56 → 3NMEDONC 17:31 → OBSVTOIN 01-25 09:27
PROVIDERS: ADMIT Hospitalist; ATTEND Hospitalist
PROC: 5A09357 Assistance with Respiratory Ventilation, Less than 24 Consecutive Hours, Continuous Positive Airway Pressure (ICD-10-PCS; principal; 2019-01-24)
DX: G92 Toxic encephalopathy (principal); E87.1 Hypo-osmolality and hyponatremia; J44.1 Chronic obstructive pulmonary disease with (acute) exacerbation; G90.50 Complex regional pain syndrome I, unspecified; J96.11 Chronic respiratory failure with hypoxia; E44.0 Moderate protein-calorie malnutrition; Z68.1 Body mass index [BMI] 19.9 or less, adult; E87.4 Mixed disorder of acid-base balance; T40.4X5A Adverse effect of other synthetic narcotics, initial encounter; B19.20 Unspecified viral hepatitis C without hepatic coma; E78.5 Hyperlipidemia, unspecified; F32.9 Major depressive disorder, single episode, unspecified; E89.0 Postprocedural hypothyroidism; R29.6 Repeated falls; G25.0 Essential tremor; E07.81 Sick-euthyroid syndrome; K21.9 Gastro-esophageal reflux disease without esophagitis; F41.9 Anxiety disorder, unspecified; N60.19 Diffuse cystic mastopathy of unspecified breast; M06.9 Rheumatoid arthritis, unspecified; M19.90 Unspecified osteoarthritis, unspecified site; F17.210 Nicotine dependence, cigarettes, uncomplicated; Z71.6 Tobacco abuse counseling; Z99.81 Dependence on supplemental oxygen; Z79.82 Long term (current) use of aspirin; Z79.890 Hormone replacement therapy; Z79.891 Long term (current) use of opiate analgesic; Z79.899 Other long term (current) drug therapy; Z86.19 Personal history of other infectious and parasitic diseases; Z86.74 Personal history of sudden cardiac arrest; Z99.3 Dependence on wheelchair; Z71.3 Dietary counseling and surveillance; Z85.850 Personal history of malignant neoplasm of thyroid; Z86.73 Personal history of transient ischemic attack (TIA), and cerebral infarction without residual deficits; Z86.718 Personal history of other venous thrombosis and embolism; Z90.710 Acquired absence of both cervix and uterus; Z98.890 Other specified postprocedural states; Z96.649 Presence of unspecified artificial hip joint; Z86.11 Personal history of tuberculosis; Z85.819 Personal history of malignant neoplasm of unspecified site of lip, oral cavity, and pharynx; Z88.5 Allergy status to narcotic agent; Z91.041 Radiographic dye allergy status; Z80.1 Family history of malignant neoplasm of trachea, bronchus and lung
CPT/HCPCS: 36415; 36600; 71046; 80048; 80053; 80164; 81003; 82550; 82805; 83605; 83735; 84100; 84439; 84443; 84481; 84484; 85025; 85610; 85730; 93005; 93306; 94640; 94660; 94760; 99291

== ENCOUNTER 2019-04-11 19:28 | Emergency (ER) | payer MEDICARE ==
[2019-04-11 19:43] VITALS: PULSE 77; RESP 18; TEMP 97.4
--- NOTE | 2019-04-11 20:32 | ED ---
Psych HPI - General Chief Complaint: Psychiatric Symptoms Stated Complaint: Mental health Time Seen by Provider: 04/11/19 19:44 Source: patient, family, RN notes reviewed Mode of arrival: wheelchair Limitations: no limitations - History of Present Illness Initial Comments: 69-year-old female presents emergency department for psychiatric evaluation. Patient has been neurologically hospital secondary to medication reactions, overdoses and psych problems. Patient states that with a nurse came today and advised to come here for evaluation. She does state that she is suicidal that she does not care to live anymore. Patient has never said this in the past. Patient is here with significant other. Patient also reportedly has been acting differently than usual. She has a history of hyponatremia. Patient was released from [facility] last week. - Related Data Home Medications Medication Instructions Recorded Confirmed Atorvastatin [Lipitor] 10 mg PO DAILY 09/16/17 04/11/19 Aspirin [Adult Low Dose Aspirin EC] 81 mg PO DAILY PRN 01/24/19 04/11/19 Propranolol HCl 10 mg PO QID 01/24/19 04/11/19 Esomeprazole Magnesium [NexIUM] 20 mg PO DAILY 04/11/19 04/11/19 FLUoxetine HCL [PROzac] 40 mg PO DAILY 04/11/19 04/11/19 HYDROcodone/APAP 10-325MG [Blair 1 tab PO Q4H PRN 04/11/19 04/11/19 10-325] Ipratropium-Albuterol Nebulize 3 ml INHALATION RT-BID 04/11/19 04/11/19 [Duoneb 0.5 mg-3 mg/3 ml Soln] Lactulose 10 gm PO DAILY 04/11/19 04/11/19 Levothyroxine Sodium 88 mcg PO DAILY 04/11/19 04/11/19 Mirtazapine [Remeron] 7.5 mg PO HS 04/11/19 04/11/19 Nitroglycerin Extended Release 2.5 mg PO BID 04/11/19 04/11/19 [Nitro-Bid] OLANZapine [ZyPREXA] 10 mg PO HS 04/11/19 04/11/19 Sennosides-Docusate Sodium 2 tab PO HS PRN 04/11/19 04/11/19 [Senokot-S] amLODIPine [Norvasc] 10 mg PO DAILY 04/11/19 04/11/19 guaiFENesin 400 mg PO Q4H 04/11/19 04/11/19 levETIRAcetam [Keppra] 500 mg PO Q12HR 04/11/19 04/11/19 Previous Rx's Medication Instructions Recorded Budesonide-Formot 160-4.5 Mcg 2 puff INHALATION RT-BID puff 01/28/19 [Symbicort 160-4.5 Mcg Inhaler] Nicotine 21Mg/24Hr Patch [Habitrol] 1 patch TRANSDERM DAILY #0 patch 01/28/19 Primidone [Mysoline] 50 mg PO TID #10 tab 02/06/19 Sodium Chloride Tab 1 gm PO BID tab 02/13/19 Allergies Allergy/AdvReac Type Severity Reaction Status Date / Time Iodinated Contrast- Oral and Allergy Unknown Verified 04/11/19 20:52 IV Dye [Iodinated Contrast Media - IV Dye] codeine AdvReac Nausea & Verified 04/11/19 20:52 Vomiting morphine AdvReac Nausea & Verified 04/11/19 20:52 Vomiting Review of Systems ROS Statement: Those systems with pertinent positive or pertinent negative responses have been documented in the HPI. ROS Other: All systems not noted in ROS Statement are negative. 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 Past Anesthesia/Blood Transfusion Reactions: No Reported Reaction Additional Past Anesthesia/Blood Transfusion Reaction / Comment(s): blood transfusion 1977 -contracted hep c- per daughter it layed domant till 1999. Past Psychological History: Anxiety, Depression Smoking Status: Current every day smoker Past Alcohol Use History: None Reported Past Drug Use History: Marijuana - Past Family History Mother Family Medical History: No Reported History Father Additional Family Medical History / Comment(s): TB Sister(s) Family Medical History: Cancer Additional Family Medical History / Comment(s): LUNG CANCER General Exam Limitations: no limitations General appearance: alert, in no apparent distress Head exam: Present: atraumatic, normocephalic, normal inspection Neck exam: Present: normal inspection. Absent: tenderness, meningismus, lymphadenopathy Respiratory exam: Present: normal lung sounds bilaterally. Absent: respiratory distress, wheezes, rales, rhonchi, stridor Cardiovascular Exam: Present: regular rate, normal rhythm, normal heart sounds. Absent: systolic murmur, diastolic murmur, rubs, gallop, clicks Neurological exam: Present: alert, oriented X3, CN II-XII intact Psychiatric exam: Present: depressed Skin exam: Present: warm, dry, intact, normal color. Absent: rash Course Vital Signs 04/11/19 19:39 Temperature 97.4 F L Pulse Rate 77 Respiratory 18 Rate Blood Pressure 119/79 O2 Sat by Pulse 95 Oximetry Medical Decision Making - Medical Decision Making 69-year-old female presents emergency Department for second evaluation evaluated by EPS case discussed with psychiatrist in which the patient is set up with counseling and therapist at home. Patient is staying with family patient is c ontracted for safety patient will be discharged - Lab Data Result diagrams: 04/11/19 20:28 04/11/19 20:28 Lab Results 04/11/19 04/11/19 04/11/19 Range/Units 20:28 20:28 21:30 WBC 7.3 (3.8-10.6) k/uL RBC 3.24 L (3.80-5.40) m/uL Hgb 11.2 L (11.4-16.0) gm/dL Hct 33.5 L (34.0-46.0) % MCV 103.2 H D (80.0-100.0) fL MCH 34.4 (25.0-35.0) pg MCHC 33.4 (31.0-37.0) g/dL RDW 15.0 (11.5-15.5) % Plt Count 430 (150-450) k/uL Neutrophils % 67 % Lymphocytes % 19 % Monocytes % 8 % Eosinophils % 2 % Basophils % 1 % Neutrophils # 4.9 (1.3-7.7) k/uL Lymphocytes # 1.4 (1.0-4.8) k/uL Monocytes # 0.6 (0-1.0) k/uL Eosinophils # 0.1 (0-0.7) k/uL Basophils # 0.1 (0-0.2) k/uL Macrocytosis Slight Sodium 132 L (137-145) mmol/L Potassium 3.9 (3.5-5.1) mmol/L Chloride 94 L (98-107) mmol/L Carbon Dioxide 33 H (22-30) mmol/L Anion Gap 5 mmol/L BUN 15 (7-17) mg/dL Creatinine 0.44 L (0.52-1.04) mg/dL Est GFR (CKD-EPI)AfAm >90 (>60 ml/min/1.73 sqM) Est GFR (CKD-EPI)NonAf >90 (>60 ml/min/1.73 sqM) Glucose 95 (74-99) mg/dL Calcium 9.0 (8.4-10.2) mg/dL Total Bilirubin 0.2 (0.2-1.3) mg/dL AST 45 H (14-36) U/L ALT 69 H (9-52) U/L Alkaline Phosphatase 95 (38-126) U/L Total Protein 6.3 (6.3-8.2) g/dL Albumin 3.5 (3.5-5.0) g/dL Urine Color Yellow Urine Appearance Clear (Clear) Urine pH 6.5 (5.0-8.0) Ur Specific [place] 1.012 (1.001-1.035) Urine Protein Negative (Negative) Urine Glucose (UA) Negative (Negative) Urine Ketones Negative (Negative) Urine Blood Negative (Negative) Urine Nitrite Negative (Negative) Urine Bilirubin Negative (Negative) Urine Urobilinogen <2.0 (<2.0) mg/dL Ur Leukocyte Esterase Negative (Negative) Urine Opiates Screen Detected H (NotDetected) Ur Oxycodone Screen Not Detected (NotDetected) Urine Methadone Screen Not Detected (NotDetected) Ur Propoxyphene Screen Not Detected (NotDetected) Ur Barbiturates Screen Detected H (NotDetected) U Tricyclic Antidepress Not Detected (NotDetected) Ur Phencyclidine Scrn Not Detected (NotDetected) Ur Amphetamines Screen Not Detected (NotDetected) U Methamphetamines Scrn Not Detected (NotDetected) U Benzodiazepines Scrn Detected H (NotDetected) Urine Cocaine Screen Not Detected (NotDetected) U Marijuana (THC) Screen Detected H (NotDetected) Serum Alcohol <10 mg/dL Disposition Clinical Impression: Depression Disposition: HOME SELF-CARE Condition: Stable Instructions (If sedation given, give patient instructions): Depression (ED) Additional Instructions: Please return to the Emergency Department if symptoms worsen or any other concerns. Is patient prescribed a controlled substance at d/c from ED?: No Referrals: Gabe Fam MD [Primary Care Provider] - 1-2 days Time of Disposition: 22:34
[2019-04-11 20:54] LABS: ALT 69 U/L (9-52); AST 45 U/L (14-36); African American GFR (CKD) >90 (>60 ml/min/1.73 sqM); Albumin 3.5 g/dL (3.5-5.0); Alcohol <10 mg/dL; Alkaline Phosphatase 95 U/L (38-126); Anion Gap 5 mmol/L; Blood Urea Nitrogen 15 mg/dL (7-17); Carbon Dioxide 33 mmol/L (22-30); Chloride 94 mmol/L (98-107); Glucose 95 mg/dL (74-99); Potassium 3.9 mmol/L (3.5-5.1); Sodium 132 mmol/L (137-145); Total Bilirubin 0.2 mg/dL (0.2-1.3); Total Protein 6.3 g/dL (6.3-8.2)
[2019-04-11 21:01] LABS: Basophils # (A) 0.1 k/uL (0-0.2); Basophils % (A) 1 %; Eosinophils # (A) 0.1 k/uL (0-0.7); Eosinophils % (A) 2 %; HCT 33.5 % (34.0-46.0); HGB 11.2 gm/dL (11.4-16.0); Lymphocytes # (A) 1.4 k/uL (1.0-4.8); Lymphocytes % (A) 19 %; MCH 34.4 pg (25.0-35.0); MCHC 33.4 g/dL (31.0-37.0); Macrocytosis Slight; Mean Platelet Volume 6.7; Monocytes # (A) 0.6 k/uL (0-1.0); Monocytes % (A) 8 %; Neutrophils # (A) 4.9 k/uL (1.3-7.7); Neutrophils % (A) 67 %; Platelet Count 430 k/uL (150-450); RBC 3.24 m/uL (3.80-5.40); WBC 7.3 k/uL (3.8-10.6)
[2019-04-11 21:07] LABS: MCV 103.2 fL (80.0-100.0)
[2019-04-11 21:53] LABS: Appearance,Urine Clear (Clear); Bilirubin,Urine Negative (Negative); Blood,Urine Negative (Negative); Color,Urine Yellow; Glucose,Urine (UA) Negative (Negative); Ketones,Urine Negative (Negative); Leukocyte Esterase,Urine Negative (Negative); Nitrite,Urine Negative (Negative); PH, Urine 6.5 (5.0-8.0); Protein,Urine Negative (Negative); Specific Gravity,Urine 1.012 (1.001-1.035); Urobilinogen,Urine <2.0 mg/dL (<2.0)
[2019-04-11 22:03] LABS: Amphetamine Screen,Urine Not Detected (NotDetected); Barbiturate Screen,Urine Detected (NotDetected); Benzodiazepines Screen,Urine Detected (NotDetected); Cocaine Screen,Urine Not Detected (NotDetected); Methadone Screen, Urine Not Detected (NotDetected); Opiate Screen,Urine Detected (NotDetected); Oxycodone Screen, Urine Not Detected (NotDetected); Phencyclidine Screen,Urine Not Detected (NotDetected); Tricyclic Antidepressant,Urine Not Detected (NotDetected); Urn Cannabinoid Scrn Detected (NotDetected)
[2019-04-11 23:27] VITALS: BP 120/76
== END 2019-04-11 23:27 | disposition home or self-care (01) ==
LOC: EC 19:28
DX: F32.9 Major depressive disorder, single episode, unspecified (principal); R45.851 Suicidal ideations; E78.5 Hyperlipidemia, unspecified; J44.9 Chronic obstructive pulmonary disease, unspecified; E07.9 Disorder of thyroid, unspecified; F41.9 Anxiety disorder, unspecified; F17.200 Nicotine dependence, unspecified, uncomplicated; Z79.82 Long term (current) use of aspirin; Z79.51 Long term (current) use of inhaled steroids; Z79.899 Other long term (current) drug therapy; Z79.890 Hormone replacement therapy; Z91.041 Radiographic dye allergy status; Z88.5 Allergy status to narcotic agent; Z86.73 Personal history of transient ischemic attack (TIA), and cerebral infarction without residual deficits; Z86.718 Personal history of other venous thrombosis and embolism; Z85.850 Personal history of malignant neoplasm of thyroid; Z86.74 Personal history of sudden cardiac arrest; Z87.828 Personal history of other (healed) physical injury and trauma; Z96.643 Presence of artificial hip joint, bilateral
CPT/HCPCS: 36415; 80053; 85025; 81003; 80306; 99285; G0480; 80320

== ENCOUNTER 2019-06-04 12:56 | Emergency (ER) | payer MEDICARE ==
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
[2019-06-04 14:45] LABS: ALT 72 U/L (9-52); AST 42 U/L (14-36); African American GFR (CKD) >90 (>60 ml/min/1.73 sqM); Alkaline Phosphatase 97 U/L (38-126); Anion Gap 7 mmol/L; Appearance,Urine Clear (Clear); Bilirubin,Urine Negative (Negative); Blood Urea Nitrogen 23 mg/dL (7-17); Blood,Urine Negative (Negative); Calcium 9.9 mg/dL (8.4-10.2); Carbon Dioxide 29 mmol/L (22-30); Chloride 98 mmol/L (98-107); Color,Urine Light Yellow; Glucose 101 mg/dL (74-99); Glucose,Urine (UA) Negative (Negative); Ketones,Urine Negative (Negative); Leukocyte Esterase,Urine Negative (Negative); Nitrite,Urine Negative (Negative); PH, Urine 6.5 (5.0-8.0); Potassium 5.1 mmol/L (3.5-5.1); Protein,Urine Negative (Negative); Sodium 134 mmol/L (137-145); Total Bilirubin 0.2 mg/dL (0.2-1.3); Total Protein 7.2 g/dL (6.3-8.2); Urobilinogen,Urine <2.0 mg/dL (<2.0)
[2019-06-04 14:59] LABS: Amphetamine Screen,Urine Not Detected (NotDetected); Benzodiazepines Screen,Urine Not Detected (NotDetected); Cocaine Screen,Urine Not Detected (NotDetected); Methadone Screen, Urine Not Detected (NotDetected); Opiate Screen,Urine Detected (NotDetected); Phencyclidine Screen,Urine Not Detected (NotDetected); Tricyclic Antidepressant,Urine Detected (NotDetected); Urn Cannabinoid Scrn Not Detected (NotDetected)
[2019-06-04 15:00] LABS: Barbiturate Screen,Urine Detected (NotDetected); Oxycodone Screen, Urine Not Detected (NotDetected)
[2019-06-04 15:07] LABS: Basophils # (A) 0.1 k/uL (0-0.2); Basophils % (A) 1 %; Eosinophils # (A) 0.2 k/uL (0-0.7); Eosinophils % (A) 3 %; HCT 43.2 % (34.0-46.0); HGB 14.1 gm/dL (11.4-16.0); Lymphocytes # (A) 1.7 k/uL (1.0-4.8); Lymphocytes % (A) 24 %; MCH 33.1 pg (25.0-35.0); MCHC 32.8 g/dL (31.0-37.0); MCV 101.1 fL (80.0-100.0); Mean Platelet Volume 5.1; Monocytes # (A) 0.5 k/uL (0-1.0); Monocytes % (A) 7 %; Neutrophils # (A) 4.3 k/uL (1.3-7.7); Neutrophils % (A) 61 %; Platelet Count 444 k/uL (150-450); RBC 4.27 m/uL (3.80-5.40); RDW 12.3 % (11.5-15.5); WBC 7.1 k/uL (3.8-10.6)
[2019-06-04] MEDS: KETOROLAC 30 MG/ML 1 ML VIAL IVP STA ×2 (16:02→16:12)
[2019-06-04] MEDS ORDERED: KETOROLAC 30 MG/ML 1 ML VIAL IM STA (16:10)
[2019-06-04 16:47] VITALS: BP 133/92; PULSE 95; RESP 18; TEMP 96.7
== END 2019-06-04 16:47 | disposition home or self-care (01) ==
LOC: EC 12:56
DX: F43.21 Adjustment disorder with depressed mood (principal); R45.851 Suicidal ideations; G89.29 Other chronic pain; M79.606 Pain in leg, unspecified; J44.9 Chronic obstructive pulmonary disease, unspecified; E78.5 Hyperlipidemia, unspecified; M19.90 Unspecified osteoarthritis, unspecified site; M06.9 Rheumatoid arthritis, unspecified; Z87.891 Personal history of nicotine dependence; Z88.5 Allergy status to narcotic agent; Z91.041 Radiographic dye allergy status; Z79.82 Long term (current) use of aspirin; Z79.890 Hormone replacement therapy; Z79.899 Other long term (current) drug therapy; Z85.850 Personal history of malignant neoplasm of thyroid; E89.0 Postprocedural hypothyroidism; Z87.76 Personal history of (corrected) congenital malformations of integument, limbs and musculoskeletal system; Z96.649 Presence of unspecified artificial hip joint; Z53.8 Procedure and treatment not carried out for other reasons
CPT/HCPCS: 82075; 36415; 80053; 85025; 81003; 80306; 99285; 96372; J1885

== ENCOUNTER 2019-07-08 08:15 | Day surgery (SDC) | payer MEDICARE ==
[2019-07-04 11:14] VITALS: BMI 16.6
[~2019-07-08 08:15] MED LIST: LACTATED RINGERS 1,000 ML IV SCH; LIDOCAINE 1% 20 ML VIAL (10MG/ML) FOR IV START INTRADERMA PRN
[2019-07-08 08:49] VITALS: TEMP 97.3
[2019-07-08] MEDS ORDERED: PROPOFOL 10 MG/ML 20 ML VIAL IV ONE (08:49)
--- NOTE | 2019-07-08 09:39 | P.PCN ---
Date of Procedure: 07/08/19 Description of Procedure: BRIEF HISTORY: 69-year-old female who presents for initial colonoscopy abnormal findings (are 19.5). No prior colonoscopy. No prior colon screening. Patient has computed tomography scan showing a dilated colon. PROCEDURE PERFORMED: Colonoscopy with polypectomy. PREOPERATIVE DIAGNOSIS: Abnormal findings (are 19.5), abnormal computed tomography scan abdomen with diffuse colonic dilation, no prior colonoscopies, no prior screening for malignant neoplasm of the colon for the patient's history. ESTIMATED BLOOD LOSS: Minimal. IV sedation per Anesthesia. PROCEDURE: After informed consent was obtained, the patient, was brought into the endoscopy unit. IV sedation was administered by Anesthesia under continuous monitoring. Digital rectal examination was normal. Initially the pediatric colonoscope colonoscope was then inserted in the rectum, gradually advanced into the cecum without any difficulty. Careful examination was performed as the scope was gradually being withdrawn. Ileocecal valve and the appendiceal orifice were visualized and appeared normal. Prep was poor with a large amount of liquid and solid stool throughout the colon. Mucosa of the cecum, ascending colon, transverse colon, descending colon, sigmoid colon, and rectum which was able to be visualized was normal, however the visualization of the mucosa severely impaired by a poor prep. A flat 2 cm hepatic flexure polyp removed with hot snare polypectomy in a piecemeal fashion with 2 subcentimeter ascending colon polyps removed with cold snare polypectomy followed retrieved and within one jar. Diffusely dilated colon. Retroflexion was performed in the rectum and no lesions were seen. The patient tolerated the procedure well. IMPRESSION: Diffusely dilated colon with poor prep with a large amount of liquid and solid stool throughout the colon inhibiting complete visualization of the mucosa. Large flat hepatic flexure polyp removed with hot snare polypectomy in a piecemeal fashion and 2 Subcentimeter ascending colon polyps removed with cold snare polypectomy. RECOMMENDATIONS: Findings of this examination were discussed with the patient and her ex-. Okay to resume diet and medications. Would recommend repeat colonoscopy in 6 months due to piecemeal resection of large polyp as well as suboptimal/poor prep. Patient should have a 2 day prep at that time and will again use pediatric colonoscope. Await pathology from polypectomy.
[2019-07-08 10:12] VITALS: BP 115/62; PULSE 78; RESP 18
== END 2019-07-08 10:20 | disposition home or self-care (01) ==
LOC: ORWHC2ENDO 08:15
PROVIDERS: ATTEND Internal Medicine
DX: D12.3 Benign neoplasm of transverse colon (principal); K63.5 Polyp of colon; E78.49 Other hyperlipidemia; J44.9 Chronic obstructive pulmonary disease, unspecified; F17.210 Nicotine dependence, cigarettes, uncomplicated; E07.9 Disorder of thyroid, unspecified; I69.311 Memory deficit following cerebral infarction; M19.90 Unspecified osteoarthritis, unspecified site; K74.60 Unspecified cirrhosis of liver; B19.20 Unspecified viral hepatitis C without hepatic coma; Z79.890 Hormone replacement therapy; E89.0 Postprocedural hypothyroidism; Z96.643 Presence of artificial hip joint, bilateral; Z90.710 Acquired absence of both cervix and uterus; Z98.890 Other specified postprocedural states; Z79.891 Long term (current) use of opiate analgesic; Z79.51 Long term (current) use of inhaled steroids; Z79.899 Other long term (current) drug therapy; Z86.718 Personal history of other venous thrombosis and embolism; Z86.711 Personal history of pulmonary embolism; Z97.2 Presence of dental prosthetic device (complete) (partial); Z88.5 Allergy status to narcotic agent; Z91.013 Allergy to seafood; Z88.8 Allergy status to other drugs, medicaments and biological substances; Z88.6 Allergy status to analgesic agent; Z91.041 Radiographic dye allergy status
CPT/HCPCS: 88305; 45385; J2704